=== PATIENT | male | born 1945 | race Caucasian/White ===

== ENCOUNTER 2018-09-07 11:51 | Emergency (ER) | payer MEDICARE ==
--- OUTSIDE RECORDS SUMMARY | 2018-09-07 12:00 | XMS REPORT | Continuity of Care Document ---
:1945 External Reference #:[id number] Author Name EmmaKaren so Care Team Providers Name Role Phone Irma Barnes MD Primary Care Physician Unavailable Payers Date Identification Numbers Payment Provider Subscriber Effective: Policy Number: [id number] Medicare Blue Ppo Keren Thomas 2014 Group Number: [id number] [address] [address] PayID: [id number] RENAY Haile [address] Effective: 2004 Policy Number: [id number] [facility] T[facility] Thomas Expires: 2018 PayID: [id number] [address] [address] RENAY Zarate [id number] Advance Directives Type Date Description Status Comment Other Directive 10/18/2014 Health Care Proxy Current and Verified Other Directive 10/18/2014 Doc Directing Health Care Current and Verified Problems Active Problems Provider Date Pulmonary emphysema Alexus Kirkland MD Onset: 04/16/2014 Essential hypertension José Luis Schwartz M.D.,FACP Onset: 06/21/2015 Benign prostatic hyperplasia Lionel Thomas NP Onset: 11/19/2017 Family History Date Family Member(s) Observation Comments General non contibutory ; pt adopted Social History Type Date Description Comments Sex Unknown Marital Status Lives With Occupation Retired commercial portfolio manager Tobacco Use Start: Unknown February 22, 2014 ETOH Use Currently consumes alcohol ETOH Use Consumes 4 beers per day Recreational Drug Use Denies Drug Use Tobacco Use Start: Unknown End: Patient is a former Pt quit September 2015 Unknown smoker Smoking Status Reviewed: 08/12/18 Patient is a former Pt quit September 2015 smoker Exercise Type/Frequency Does not exercise Allergies, Adverse Reactions, Alerts Active Allergies Reaction Severity Comments Date Flagyl 03/26/2014 Antihistamines 03/26/2014 Anticholinergics 03/26/2014 Dicyclomine 01/06/2015 Cyclobenzaprine prostatitis Moderate 03/10/2015 Valsartan 10/18/2015 Amlodipine 10/18/2015 Chlorthalidone feels drugged 10/18/2015 Engerix-B 11/05/2015 Hydrochlorothiazide pain lower abdomen Mild 06/29/2016 Pravastatin leg pain and urinary 11/06/2016 problems Methocarbamol irregular 10/26/2017 heartbeat,palpitations, HTN Aspirin GI upset when takes 11/15/2017 everyday Medications Active Medications SIG Qnty Indications Ordering Date Provider Oxycodone-Acetaminophen 1 tabs by mouth 12tabs M54.5 Lionel Thomas, 5-325mg every 6 hours as [employer] 9 Tablets needed for pain Nystatin 1 teaspoon four t 240units Lionel Thomas, [id number] imes a day for 7 [employer] 7 Suspension days as needed for thrush Mometasone Furoate apply daily as 60ml Lionel Thomas, 0.1% needed [employer] 5 Solution Symbicort 2 puff inhaled 2units J44.9 Lionelbritton Thomas, 160-4.5mcg/Act twice a day [employer] 5 Aerosol Omeprazole 1 by mouth twice 180caps Lionelbritton Thomas, 20mg Capsules DR a day [employer] 5 Nasacort Aq 2 sprays in each Unknown 55mcg/Act Aerosol nostril every day 5 Acidophilus Lactobacillus Plantarum 299v 1 Unknown by mouth every 0 Capsules day Hydrochlorothiazide 1 by mouth as 90tabs Brenton S. 25mg needed for Lopez, DO 0 Tablets bloating FACC Lisinopril take 1 to 2 120tabs Brenton S. 5mg Tablets tablets by mouth Lopez, DO 0 every day pending FAC bp measurements Hydrocortisone as needed Unknown 1% Lotion 0 Acetaminophen 2 tablets every 6 Unknown 500mg Tablets hours as needed 0 for pain Milk Of Magnesia 30 milliliters Unknown Suspension oral every day as 0 needed for constipation. History Medications Amoxicillin/Clavulanate take one tablet 28tabs J01.90 Lionel Thomas, 2018 - Potassium q12 hours for [employer] Unknown 875-125mg Tablets 14 days Augmentin one twice a day 20tabs Ayden Douglass 03/27/2018 - 875-125mg Tablets with food Humaira, 05/26/2018 Oxycodone-Acetaminophen 1 tabs by mouth 12tabs M54.5 Lionel Thomas, 2018 - 5-325mg every 6 hours [employer] Unknown Tablets as needed for pain Levofloxacin one by mouth 10tabs Lionel Thomas, 03/13/2018 - 500mg Tablets daily for 10 [employer] 03/23/2018 days Clopidogrel Bisulfate 1 by mouth 30tabs I65.23 Brenton Douglass 11/15/2017 - 75mg Tablets Sunday, Lopez, Unknown Sunday and FACC Sunday. Methocarbamol take 1 tablet 30tabs R10.9 Anastasia 09/17/2017 - 750mg Tablets every six hours Tracey, N.PEfraín 10/25/2017 as needed for pain. Levofloxacin 1 po qd 10tabs K57.30 Lilibeth Hector 02/16/2017 - 500mg Tablets Won Coker 03/29/2017 Delzicol Take 4 6 180caps Lionel Thomas, 11/23/2016 - 400mg Capsules DR Capsules By [employer] 10/25/2017 Mouth Per Day prn Oralone thin layer of 5gm Lionel Thomas, 11/23/2016 - 0.1% Paste paste to [employer] 02/05/2017 affected areas 2-4 times daily Pravastatin Sodium 1 tablet daily 90tabs E78.5 Lionel Thomas, 11/24/2015 - 40mg Tablets at bedtime [employer] 06/20/2016 Clonidine HCL Take one tablet 30tabs I10 Brenton Douglass 10/18/2015 - 0.1mg Tablets daily-patient Lopez, DO 10/13/2015 never started FACC medication Chlorthalidone 1/2 by mouth 30tabs Brenton Douglass 10/06/2015 - 25mg Tablets every day(pt DO John 10/18/2015 not taking) FACC Amlodipine Besylate 1 1/2 by mouth 30tabs I10 Lionel Thomas, 08/30/2015 - 5mg Tablets every day [employer] 09/07/2015 Valsartan 1 by mouth 90tabs I10 Melecio Ramon 08/23/2015 - 80mg Tablets every day Won Pierce 08/30/2015 Symbicort 2 puff twice a 1units J44.9 Melecio Ramon 04/16/2014 - 80-4.5mcg/Act Aerosol day Won Pierce 01/06/2015 Foradil Aerolizer 1 cap 1caps 496 Alexus 04/16/2014 - 12mcg Capsules inhalation MD Isael 04/16/2014 every day Foradil Aerolizer 1 cap 1caps 496 Alexus 04/16/2014 - 12mcg Capsules inhalation MD Isael 01/06/2015 twice a day Foradil Aerolizer 1 cap 1caps 496 Alexus 03/26/2014 - 12mcg Capsules inhalation MD Isael 04/16/2014 every day Advair HFA twice a day 30units 496 Alexus 03/26/2014 - 230-21mcg/Act Aerosol MD Isael 04/15/2014 Ibuprofen not taking Unknown 03/25/2014 - 200mg Capsules 09/08/2015 Hydrocortisone apply as Unknown 03/25/2014 - Cream directed 01/06/2015 Lactaid as needed Alexus 03/25/2014 - MD Isael 11/05/2016 Culturelle not taking Unknown 03/25/2014 - Capsules 09/08/2015 Symbicort by mouth twice Unknown 03/25/2014 - 160-4.5mcg/Act Aerosol a day 04/16/2014 Lisinopril 1 by mouth 180tabs Melecio Ramon 03/25/2014 - 20mg Tablets twice day Won Pierce 08/30/2015 Delzicol 2 by mouth Unknown - 400mg Capsules DR three times a 06/01/2015 day Nystatin 1 teaspoon four 240units Melecio Ramon - [id number] Suspension t imes a day Won Pierce 06/01/2015 for 7 days as needed fro thrush Triamcinolone Acetonide not taking 454units Unknown - 0.1% Cream Unknown Bactrim daily Unknown - 09/29/2015 Amlodipine Besylate 1 tab po qd Unknown - 5mg Tablets 09/08/2015 Lisinopril 1 by mouth 60tabs Brenton Douglass - 5mg Tablets twice daily as John, Unknown needed(pt not FACC taking) Culturelle Digestive Health 1 by mouth Unknown - Capsules every day 09/27/2017 Melatonin ER 03/13/18 reports Unknown - 5mg Tablets ER not taking. 1 @ Unknown hs as needed KP Aspirin 1 by mouth Unknown - 81mg Tablets DR every day 11/05/2016 Delzicol by mouth twice Unknown - 400mg Capsules DR a day 08/04/2018 Medications Administered in Office Medication SIG Qnty Indications Ordering Provider Date Technetium TC 99M Brenton Lopez, FACC 05/17/2016 Tetrofosmin, Per Unit Dose Up To 40 Millicuries Injection Immunizations CPT Code Status Date Vaccine Reaction Lot # [id number] Given 11/19/2017 Fluzone High Dose [id number] 98306 Given 09/04/2017 Zoster (Shingles) Vaccine (HZV), Recombinant, Subunit, Adjuvanted 88673 Given 03/19/2017 Zoster (Shingles) Vaccine (HZV), Recombinant, Subunit, Adjuvanted 21535 Given 11/23/2016 Pneumonia Vaccine No immediate [id number] reaction...jh 86358 Given 11/23/2016 Influenza Virus Vaccine, No immediate [id number] Quadrivalent, Split, reaction.... Preservative Free 46493 Given 11/24/2015 Influ Virus Vaccine, no reaction noted ... [id number] Quadrivalent, Split Virus, [place] [address] Given 09/29/2015 Pneumococcal Conjugate [id number] Vaccine 13 Valent For Intramuscular Use 79162 Given 12/04/2005 Influenza Virus 3Yrs & Over Vital Signs Date Vital Result Comment 08/12/2018 11:42am Heart Rate 60 /min BP Systolic Sitting 138 mmHg BP Diastolic Sitting 88 mmHg Respiratory Rate 16 /min Body Temperature 97.4 F 08/05/2018 2:23pm Height 69 inches 5'9" Weight 175.00 lb Heart Rate 67 /min BP Systolic 146 mmHg BP Diastolic 84 mmHg Body Temperature 97.8 F O2 % BldC Oximetry 96 % BMI (Body Mass Index) 25.8 kg/m2 07/30/2018 3:05pm Weight 175.00 lb Heart Rate 72 /min BP Systolic 146 mmHg BP Diastolic 84 mmHg Respiratory Rate 18 /min Body Temperature 97.5 F 05/27/2018 1:46pm Height 69 inches 5'9" Weight 177.00 lb Heart Rate 70 /min BP Systolic 143 mmHg BP Diastolic 81 mmHg BP Systolic Recheck 134 mmHg BP Diastolic Recheck 72 mmHg Body Temperature 97.9 F O2 % BldC Oximetry 98 % BMI (Body Mass Index) 26.1 kg/m2 04/01/2018 10:41am Height 69 inches 5'9" Weight 172.00 lb BP Systolic Sitting 126 mmHg BP Diastolic Sitting 74 mmHg Respiratory Rate 16 /min Pain Level 5 BMI (Body Mass Index) 25.4 kg/m2 03/22/2018 11:50am Heart Rate 60 /min Respiratory Rate 20 /min Body Temperature 97.8 F 03/13/2018 11:45am Height 69 inches 5'9" Weight 172.00 lb Heart Rate 102 /min BP Systolic 139 mmHg BP Diastolic 87 mmHg Body Temperature 99.3 F O2 % BldC Oximetry 96 % BMI (Body Mass Index) 25.4 kg/m2 11/19/2017 1:07pm Height 69 inches 5'9" Weight 172.00 lb Heart Rate 56 /min BP Systolic Sitting 132 mmHg BP Diastolic Sitting 74 mmHg Body Temperature 96.6 F O2 % BldC Oximetry 99 % BMI (Body Mass Index) 25.4 kg/m2 11/15/2017 1:42pm Height 69 inches 5'9" Weight 173.00 lb Heart Rate 66 /min BP Systolic Sitting 138 mmHg lue reg cuff BP Diastolic Sitting 72 mmHg lue reg cuff BP Systolic Standing 110 mmHg BP Diastolic Standing 70 mmHg Respiratory Rate 16 /min BMI (Body Mass Index) 25.5 kg/m2 10/26/2017 11:08am Height 69 inches 5'9" Weight 173.00 lb Heart Rate 72 /min BP Systolic Sitting 164 mmHg LA Large Cuff BP Diastolic Sitting 88 mmHg LA Large Cuff BP Systolic Standing 156 mmHg LA Large Cuff BP Diastolic Standing 82 mmHg LA Large Cuff Respiratory Rate 20 /min Pain Level 0 O2 % BldC Oximetry 98 % BMI (Body Mass Index) 25.5 kg/m2 09/28/2017 2:41pm Height 69 inches 5'9" Heart Rate 60 /min BP Systolic Sitting 154 mmHg left arm , reg cuff BP Diastolic Sitting 90 mmHg left arm , reg cuff BP Systolic Standing 152 mmHg BP Diastolic Standing 88 mmHg Respiratory Rate 18 /min 09/17/2017 1:58pm Height 69 inches 5'9" Weight 176.00 lb Heart Rate 58 /min BP Systolic Sitting 155 mmHg BP Diastolic Sitting 81 mmHg Body Temperature 98.7 F O2 % BldC Oximetry 99 % BMI (Body Mass Index) 26.0 kg/m2 05/24/2017 1:32pm Weight 174.50 lb Heart Rate 59 /min BP Systolic 120 mmHg BP Diastolic 72 mmHg Body Temperature 96.8 F O2 % BldC Oximetry 99 % 04/26/2017 11:37am Weight 180.50 lb Heart Rate 62 /min BP Systolic 132 mmHg BP Diastolic 66 mmHg Body Temperature 97.1 F O2 % BldC Oximetry 98 % 03/30/2017 9:02am Heart Rate 58 /min BP Systolic 150 mmHg BP Diastolic 88 mmHg Respiratory Rate 16 /min Pain Level 0 O2 % BldC Oximetry 98 % 02/16/2017 1:27pm Weight 176.50 lb Heart Rate 63 /min BP Systolic 124 mmHg BP Diastolic 72 mmHg Body Temperature 97.7 F O2 % BldC Oximetry 96 % 02/16/2017 10:28am Height 69 inches 5'9" Weight 175.50 lb Heart Rate 72 /min BP Systolic Sitting 142 mmHg BP Diastolic Sitting 86 mmHg Respiratory Rate 16 /min Pain Level 2 BMI (Body Mass Index) 25.9 kg/m2 11/23/2016 1:17pm Weight 175.75 lb Heart Rate 56 /min BP Systolic 124 mmHg BP Diastolic 72 mmHg Body Temperature 97.2 F O2 % BldC Oximetry 97 % 11/06/2016 2:00pm Height 69 inches 5'9" Weight 175.00 lb with shoes Heart Rate 72 /min BP Systolic Sitting 110 mmHg Lue reg cuff BP Diastolic Sitting 80 mmHg Lue reg cuff BP Systolic Standing 120 mmHg Lue reg cuff BP Diastolic Standing 82 mmHg Lue reg cuff Respiratory Rate 17 /min BMI (Body Mass Index) 25.8 kg/m2 Ejection Fraction 55-60% date 09/27/15 ECHO 05/31/2016 1:12pm Height 69 inches 5'9" Weight 180.00 lb Heart Rate 58 /min BP Systolic Sitting 122 mmHg left arm, reg cuff BP Diastolic Sitting 84 mmHg left arm, reg cuff BP Systolic Standing 120 mmHg left arm, reg cuff BP Diastolic Standing 80 mmHg left arm, reg cuff BMI (Body Mass Index) 26.6 kg/m2 Ejection Fraction 55-60% 09/27/15 05/24/2016 2:21pm Weight 172.50 lb Heart Rate 87 /min BP Systolic 154 mmHg BP Diastolic 82 mmHg Body Temperature 98.2 F O2 % BldC Oximetry 97 % 05/04/2016 10:30am Height 69 inches 5'9" Weight 176.00 lb no shoes Heart Rate 56 /min BP Systolic Sitting 146 mmHg Lue reg cuff BP Diastolic Sitting 72 mmHg Lue reg cuff BP Systolic Standing 138 mmHg Lue reg cuff BP Diastolic Standing 70 mmHg Lue reg cuff Respiratory Rate 17 /min BMI (Body Mass Index) 26.0 kg/m2 Ejection Fraction 55-60% 09/27/2015-echo 04/11/2016 11:13am BP Systolic 118 mmHg BP Diastolic 70 mmHg 03/07/2016 12:59pm Heart Rate 66 /min BP Systolic 138 mmHg BP Diastolic 76 mmHg Respiratory Rate 18 /min Body Temperature 97.5 F 02/29/2016 1:00pm Heart Rate 60 /min Respiratory Rate 16 /min Body Temperature 96.9 F 01/18/2016 1:55pm Height 69 inches 5'9" Weight 175.00 lb Heart Rate 72 /min BP Systolic 142 mmHg BP Diastolic 84 mmHg Respiratory Rate 18 /min Body Temperature 98.7 F 97.5 BMI (Body Mass Index) 25.8 kg/m2 11/24/2015 2:54pm Height 69 inches 5'9" Weight 175.00 lb Heart Rate 62 /min BP Systolic Sitting 148 mmHg BP Diastolic Sitting 88 mmHg Respiratory Rate 15 /min Body Temperature 98.0 F O2 % BldC Oximetry 98 % BMI (Body Mass Index) 25.8 kg/m2 11/05/2015 10:50am Weight 174.00 lb Heart Rate 52 /min BP Systolic Sitting 154 mmHg LA Regular Cuff BP Diastolic Sitting 80 mmHg LA Regular Cuff BP Systolic Standing 144 mmHg LA Regular Cuff BP Diastolic Standing 84 mmHg LA Regular Cuff Ejection Fraction 55-60% 09/27/15 10/18/2015 3:35pm Weight 176.00 lb with shoes Heart Rate 60 /min BP Systolic Sitting 150 mmHg LA reg cuff BP Diastolic Sitting 90 mmHg LA reg cuff BP Systolic Standing 158 mmHg LA reg cuff BP Diastolic Standing 86 mmHg LA reg cuff Respiratory Rate 16 /min Ejection Fraction 55-60% 09/27/2015 09/29/2015 2:57pm Weight 174.00 lb Heart Rate 58 /min BP Systolic Sitting 128 mmHg BP Diastolic Sitting 64 mmHg Respiratory Rate 15 /min Body Temperature 98.5 F O2 % BldC Oximetry 98 % 09/17/2015 1:33pm Height 70.25 inches 5'10.25" Weight 170.25 lb Heart Rate 64 /min BP Systolic 126 mmHg Ra reg cuff BP Diastolic 74 mmHg Ra reg cuff BP Systolic Sitting 134 mmHg LA reg cuff BP Diastolic Sitting 84 mmHg LA reg cuff BP Systolic Standing 134 mmHg LA BP Diastolic Standing 82 mmHg LA Respiratory Rate 16 /min BMI (Body Mass Index) 24.3 kg/m2 09/07/2015 10:12am Weight 171.00 lb with shoes Heart Rate 63 /min BP Systolic Sitting 146 mmHg BP Diastolic Sitting 84 mmHg Body Temperature 96.6 F O2 % BldC Oximetry 97 % 09/01/2015 10:56am Weight 170.00 lb Heart Rate 87 /min BP Systolic Sitting 145 mmHg right BP Diastolic Sitting 89 mmHg right BP Systolic Standing 144 mmHg left BP Diastolic Standing 93 mmHg left Body Temperature 98.0 F O2 % BldC Oximetry 97 % 08/30/2015 4:23pm Weight 173.00 lb Heart Rate 66 /min BP Systolic Sitting 142 mmHg BP Diastolic Sitting 80 mmHg Respiratory Rate 15 /min Body Temperature 98.0 F O2 % BldC Oximetry 98 % 08/23/2015 4:35pm Weight 172.25 lb Heart Rate 74 /min BP Systolic 166 mmHg BP Diastolic 89 mmHg Body Temperature 97.3 F O2 % BldC Oximetry 97 % 06/01/2015 1:32pm Weight 166.00 lb Heart Rate 85 /min BP Systolic Sitting 140 mmHg BP Diastolic Sitting 88 mmHg Respiratory Rate 16 /min Body Temperature 97.6 F O2 % BldC Oximetry 98 % 03/10/2015 4:29pm Height 70 inches 5'10" Weight 173.00 lb Heart Rate 69 /min BP Systolic 116 mmHg BP Diastolic 69 mmHg Body Temperature 98.4 F O2 % BldC Oximetry 96 % BMI (Body Mass Index) 24.8 kg/m2 01/06/2015 2:52pm Weight 171.00 lb Heart Rate 83 /min BP Systolic Sitting 144 mmHg BP Diastolic Sitting 84 mmHg Body Temperature 96.9 F 04/16/2014 10:34am Heart Rate 93 /min BP Systolic Sitting 132 mmHg BP Diastolic Sitting 60 mmHg Respiratory Rate 22 /min O2 % BldC Oximetry 93 % 03/26/2014 2:46pm Height 70 inches 5'10" Weight 183.12 lb Heart Rate 83 /min BP Systolic Sitting 128 mmHg BP Diastolic Sitting 62 mmHg Respiratory Rate 20 /min Body Temperature 97.8 F O2 % BldC Oximetry 96 % BMI (Body Mass Index) 26.3 kg/m2 Neck Circumference in inches 15.5 Results Test Date Facility Test Result H/L Range Note Laboratory test 05/14/2018 [facility] Rheumatoid Factor 13 IU/ mL N <15 [address] [place] [address] [phone] PSA Screening 4.726 ng/mL High 0-4.000 2 Connective Tissue 05/14/2018 [facility] Anti-Nuclear Antibody 0.3 U [address] [place] [address] [phone] Cyclic Citrullinated Peptide <15.6 U 4 Interpretation See Comment 5 Laboratory test 05/14/2018 [facility] Erythrocyte Sed 36 mm/Hr High 0-19 [address] [place] [address] [phone] C Reactive Protein 5.08 mg/L N <8.01 7 Laboratory test 03/13/2018 [facility] C Difficile PCR SEE RESULT [address] [place] [address] [phone] CBC Auto Diff 03/13/2018 [facility] White Blood 7.8 10^3/uL N 3.5-[address] Count .8 [place] [address] [phone] Red Blood Count 4.31 10^6/uL N 4.00-5.40 Hemoglobin 14.0 g/dL N 14.0-18.0 Hematocrit 41 % Low 42-52 Mean Corpuscular Volume 95 fL High 80-94 Mean Corpuscular Hemoglobin 32 pg High 27-31 Mean Corpuscular HGB Conc 34 g/dL N 31-36 Red Cell Distribution Width 13 % N 10.5-15 Abs Neutrophils 5.5 10^3/uL N 1.5-7.7 Abs Lymphocytes 1.2 10^3/uL N 1.0-4.8 Abs Monocytes 0.9 10^3/uL High 0-0.8 Abs Eosinophils 0.1 10^3/uL N 0-0.6 Abs Basophils 0 10^3/uL N 0-0.2 Abs Nucleated RBC 0 10^3/uL Granulocyte % 70.3 % Lymphocyte % 15.6 % Monocyte % 12.2 % Eosinophil % 1.3 % Basophil % 0.6 % Nucleated Red Blood Cells % 0 Platelet Count (SEE NOTE) 10^3/uL 150-450 9 Comp Metabolic Panel 03/13/2018 [facility] Sodium 138 mmol/L N 135-[address] [place] [address] [phone] Potassium 4.5 mmol/L N 3.5-5.0 Chloride 104 mmol/L N 101-111 Co2 Carbon Dioxide 29 mmol/L N 22-32 Anion Gap 5 mmol/L N 2-11 Glucose 86 mg/dL N 70-100 Blood Urea Nitrogen 14 mg/dL N 6-24 Creatinine 0.72 mg/dL N 0.67-1.17 BUN/Creatinine Ratio 19.4 N 8-20 Calcium 9.0 mg/dL N 8.6-10.3 Total Protein 6.4 g/dL N 6.4-8.9 Albumin 3.9 g/dL N 3.2-5.2 Globulin 2.5 g/dL N 2-4 Albumin/Globulin Ratio 1.6 N 1-3 Total Bilirubin 1.00 mg/dL N 0.2-1.0 Alkaline Phosphatase 44 U/L N 34-104 Alt 16 U/L N 7-52 Ast 19 U/L N 13-39 Egfr Non- 107.6 >60 Egfr 130.2 >60 10 Laboratory test 03/13/2018 [facility] Lipase 10 U/L Low 11.0- 82.[address] [place] [address] [phone] Erythrocyte Sed Rate 67 mm/Hr High 0-40 C Reactive Protein 73.10 mg/L High <8.01 Urine Culture And 03/13/2018 [facility] Urine Culture SEE RESULT [address] [place] [address] [phone] Lipid Profile 11/08/2017 [facility] Triglycerides 59 mg/dL 12 (Trig/Chol/HDL) [address] [place] [address] [phone] Cholesterol 173 mg/dL 13 HDL Cholesterol 66.3 mg/dL 14 LDL Cholesterol 95 mg/dL 15 Comp Metabolic Panel 11/08/2017 [facility] Sodium 141 mmol/L N 135-[address] [place] [address] [phone] Potassium 4.4 mmol/L N 3.5-5.0 Chloride 105 mmol/L N 101-111 Co2 Carbon Dioxide 29 mmol/L N 22-32 Anion Gap 7 mmol/L N 2-11 Glucose 95 mg/dL N 70-100 Blood Urea Nitrogen 16 mg/dL N 6-24 Creatinine 0.63 mg/dL Low 0.67-1.17 BUN/Creatinine Ratio 25.4 High 8-20 Calcium 9.1 mg/dL N 8.6-10.3 Total Protein 6.3 g/dL Low 6.4-8.9 Albumin 4.1 g/dL N 3.2-5.2 Globulin 2.2 g/dL N 2-4 Albumin/Globulin Ratio 1.9 N 1-3 Total Bilirubin 1.00 mg/dL N 0.2-1.0 Alkaline Phosphatase 48 U/L N 34-104 Alt 22 U/L N 7-52 Ast 20 U/L N 13-39 Egfr Non- 125.9 >60 Egfr 152.3 >60 16 Laboratory test 05/07/2017 [facility] Clotest SEE RESULT [address] [place] [address] [phone] Laboratory test 05/07/2017 [facility] Surgical SEE RESULT [address] [place] [address] [phone] Comp Metabolic 04/27/2017 [facility] Sodium 140 mmol/L N 133- [address] [place] [address] [phone] Potassium 4.0 mmol/L N 3.5-5.0 Chloride 103 mmol/L N 101-111 Co2 Carbon Dioxide 32 mmol/L N 22-32 Anion Gap 5 mmol/L N 2-11 Glucose 89 mg/dL N 70-100 Blood Urea Nitrogen 15 mg/dL N 6-24 Creatinine 0.69 mg/dL N 0.67-1.17 BUN/Creatinine Ratio 21.7 High 8-20 Calcium 9.2 mg/dL N 8.6-10.3 Total Protein 6.3 g/dL Low 6.4-8.9 Albumin 3.8 g/dL N 3.2-5.2 Globulin 2.5 g/dL N 2-4 Albumin/Globulin Ratio 1.5 N 1-3 Total Bilirubin 1.20 mg/dL High 0.2-1.0 Alkaline Phosphatase 40 U/L N 34-104 Alt 20 U/L N 7-52 Ast 14 U/L N 13-39 Egfr Non- 113.4 >60 Egfr 145.8 >60 19 Lipid Profile 04/27/2017 [facility] Triglycerides 78 mg/dL 20 (Trig/Chol/HDL) [address] [place] [address] [phone] Cholesterol 206 mg/dL 21 HDL Cholesterol 75.4 mg/dL 22 LDL Cholesterol 115 mg/dL 23 Laboratory test 04/27/2017 [facility] PSA Screening 4.259 High 0-4.000 [address] ng/[place] [address] [phone] CBC Auto Diff 04/27/2017 [facility] White Blood 7.4 N 3.5- 10.[address] Count 10^3/[place] [address] [phone] Red Blood Count 4.43 10^6/uL N 4.0-5.4 Hemoglobin 14.3 g/dL N 14.0-18.0 Hematocrit 42 % N 42-52 Mean Corpuscular Volume 96 fL High 80-94 Mean Corpuscular Hemoglobin 32 pg High 27-31 Mean Corpuscular HGB Conc 34 g/dL N 31-36 Red Cell Distribution Width 13 % N 10.5-15 Platelet Count 174 10^3/uL N 150-450 Mean Platelet Volume 9.0 um3 N 7.4-10.4 Abs Neutrophils 4.2 10^3/uL N 1.5-7.7 Abs Lymphocytes 2.3 10^3/uL N 1.0-4.8 Abs Monocytes 0.7 10^3/uL N 0-0.8 Abs Eosinophils 0.2 10^3/uL N 0-0.6 Abs Basophils 0 10^3/uL N 0-0.2 Abs Nucleated RBC 0 10^3/uL Granulocyte % 57.0 % N 38-83 Lymphocyte % 30.6 % N 25-47 Monocyte % 10.0 % High 0-7 Eosinophil % 2.1 % N 0-6 Basophil % 0.3 % N 0-2 Nucleated Red Blood Cells % 0 Laboratory 04/27/2017 [facility] Lipase 12 U/L N 11.0-82.[address] [place] [address] [phone] Laboratory 03/30/2017 [facility] Surgical SEE RESULT 25 test [place] [address] [phone] Lipid Profile 10/18/2016 [facility] Triglycerides 68 mg/dL N 26 (Trig/Chol/HDL ) [place] [address] [phone] Cholesterol 194 mg/dL N 27 HDL Cholesterol 58.8 mg/dL N 28 LDL Cholesterol 122 mg/dL N 29 Comp Metabolic Panel 10/18/2016 [facility] Sodium 139 mmol/L N 133-[address] [place] [address] [phone] Potassium 4.0 mmol/L N 3.5-5.0 Chloride 101 mmol/L N 101-111 Co2 Carbon Dioxide 32 mmol/L N 22-32 Anion Gap 6 mmol/L N 2-11 Glucose 103 mg/dL High 70-100 Blood Urea Nitrogen 16 mg/dL N 6-24 Creatinine 0.78 mg/dL N 0.67-1.17 BUN/Creatinine Ratio 20.5 High 8-20 Calcium 9.7 mg/dL N 8.6-10.3 Total Protein 7.0 g/dL N 6.4-8.9 Albumin 4.2 g/dL N 3.2-5.2 Globulin 2.8 g/dL N 2-4 Albumin/Globulin Ratio 1.5 N 1-3 Total Bilirubin 1.60 mg/dL High 0.2-1.0 Alkaline Phosphatase 37 U/L N 34-104 Alt 16 U/L N 7-52 Ast 19 U/L N 13-39 Egfr Non- 98.7 N >60 Egfr 126.9 N >60 30 Laboratory test 05/04/2016 [facility] Troponin-I (TnI) 0.01 N <0.04 31, [address] ng/[place] [address] [phone] Lipid Profile 05/03/2016 [facility] Triglycerides 61 mg/dL N 33 (Trig/Chol/HDL) [address] [place] [address] [phone] Cholesterol 181 mg/dL N 34 HDL Cholesterol 60.7 mg/dL N 35 LDL Cholesterol 108 mg/dL N 36 Comp Metabolic Panel 05/03/2016 [facility] Sodium 135 mmol/L N 133-[address] [place] [address] [phone] Potassium 4.1 mmol/L N 3.5-5.0 Chloride 103 mmol/L N 101-111 Co2 Carbon Dioxide 29 mmol/L N 22-32 Anion Gap 3 mmol/L N 2-11 Glucose 107 mg/dL High 70-100 Blood Urea Nitrogen 16 mg/dL N 6-24 Creatinine 0.73 mg/dL N 0.67-1.17 BUN/Creatinine Ratio 21.9 High 8-20 Calcium 9.4 mg/dL N 8.6-10.3 Total Protein 6.9 g/dL N 6.4-8.9 Albumin 4.1 g/dL N 3.2-5.2 Globulin 2.8 g/dL N 2-4 Albumin/Globulin Ratio 1.5 N 1-3 Total Bilirubin 1.30 mg/dL High 0.2-1.0 Alkaline Phosphatase 35 U/L N 34-104 Alt 16 U/L N 7-52 Ast 16 U/L N 13-39 Egfr Non- 106.5 N >60 Egfr 137.0 N >60 37 Laboratory test 05/03/2016 [facility] PSA Screening 3.559 N 0- 4.000 [address] ng/[place] [address] [phone] Laboratory test 05/03/2016 [facility] PSA Screening 3.559 N 0- 4.000 [address] ng/[place] [address] [phone] Creatinine 03/01/2016 [facility] Creatinine 0.80 mg/dL N 0.67- 1.[address] [place] [address] [phone] Egfr Non- 96.1 N >60 Egfr 123.6 N >60 40 Laboratory test 03/01/2016 [facility] Blood Urea Nitrogen 13 mg/ dL N 6-24 finding [address] [facility] [place] [address] [phone] Lipid Profile 10/29/2015 [facility] Triglycerides 67 mg/dL N 41 (Trig/Chol/HDL) [address] [place] [address] [phone] Cholesterol 199 mg/dL N 42 HDL Cholesterol 59.7 mg/dL N 43 LDL Cholesterol 126 mg/dL N 44 Laboratory test finding 10/29/2015 [facility] Glucose 95 mg/dL N 70-100 [address] [place] [address] [phone] Hepatitis C Antibody Nonreactive N Nonreactive Basic Metabolic Panel 09/23/2015 [facility] Sodium 136 mmol/L N 133-145 [address] [place] [address] [phone] Potassium 4.5 mmol/L N 3.5-5.0 Chloride 103 mmol/L N 101-111 Co2 Carbon Dioxide 29 mmol/L N 22-32 Anion Gap 4 mmol/L N 2-11 Glucose 99 mg/dL N 70-100 Blood Urea Nitrogen 16 mg/dL N 6-24 Creatinine 0.72 mg/dL N 0.67-1.17 BUN/Creatinine Ratio 22.2 High 8-20 Calcium 9.4 mg/dL N 8.6-10.3 Egfr Non- 108.6 N >60 Egfr 139.6 N >60 45 Laboratory test 09/23/2015 [facility] Magnesium 2.2 mg/dL N 1.9-2.7 finding [address] [place] [address] [phone] Laboratory test 01/07/2015 [facility] TSH (Thyroid 1.68 N 0.34 -5.60 finding 101 [facility] Stim Horm) ?IU/[place] [address] [phone] Basic Metabolic 01/07/2015 [facility] Sodium 136 mmol/L N 133- 145 Panel [address] [place] [address] [phone] Potassium 4.2 mmol/L N 3.5-5.0 Chloride 100 mmol/L Low 101-111 Co2 Carbon Dioxide 30 mmol/L N 22-32 Anion Gap 6 mmol/L N 2-11 Glucose 96 mg/dL N 70-100 Blood Urea Nitrogen 10 mg/dL N 6-24 Creatinine 0.79 mg/dL N 0.67-1.17 BUN/Creatinine Ratio 12.7 N 8-20 Calcium 9.7 mg/dL N 8.6-10.3 Egfr Non- 97.8 N >60 Egfr 125.8 N >60 46 CBC Auto Diff 01/07/2015 [facility] White Blood 6.1 10^3/uL N 4.8-10.[address] [place] [address] [phone] Red Blood Count 4.37 10^6/uL N 4.0-5.4 Hemoglobin 14.4 g/dL N 14.0-18.0 Hematocrit 43 % N 42-52 Mean Corpuscular Volume 98 fL High 80-94 Mean Corpuscular Hemoglobin 33 pg High 27-31 Mean Corpuscular HGB Conc 34 g/dL N 31-36 Red Cell Distribution Width 12 % N 10.5-15 Platelet Count 224 10^3/uL N 150-450 Mean Platelet Volume 9 um3 N 7.4-10.4 Abs Neutrophils 4.1 10^3/uL N 1.5-7.7 Abs Lymphocytes 1.4 10^3/uL N 1.0-4.8 Abs Monocytes 0.6 10^3/uL N 0-0.8 Abs Eosinophils 0.1 10^3/uL N 0-0.6 Abs Basophils 0 10^3/uL N 0-0.2 Abs Nucleated RBC 0.01 10^3/uL N Granulocyte % 66.3 % N 38-83 Lymphocyte % 22.2 % Low 25-47 Monocyte % 9.1 % High 1-9 Eosinophil % 1.9 % N 0-6 Basophil % 0.5 % N 0-2 Nucleated Red Blood Cells % 0.2 N Laboratory test 01/07/2015 [facility] Magnesium 2.1 mg/dL N 1.9-2.[address] [place] [address] [phone] Anti Dnase B 04/07/2014 [facility] Anti Streptolysin 200 IU/mL N 0 - 530 Strep Antibodies [address] [place] [address] [phone] Anti-DNase B 90 U/mL N 0 - 300 47 Laboratory test 04/07/2014 [facility] Vicki (Anti-Nuclear Negative N Negative finding [address] AB) [place] [address] [phone] Rheumatoid Factor <15 IU/mL N <15 48 1 Copy Result to: LILIBETH TREVIZO ([id number]) 2 Serum levels of PSA measured using the [employer] DXI Hybritech immunoassay should not be interpreted as absolute evidence of the presence or absence of disease. The PSA value should be used in conjunction with other pertinent clinical diagnostic procedures. The values obtained with different assay methods or kits cannot be used interchangeably. 3 REFERENCE VALUE <=1.0 (Negative) 4 REFERENCE VALUE <20.0 (Negative) 5 Tests for antibodies to dsDNA and PEDRO antigens are not performed automatically unless the VICKI result is > or= 3.0 U. Studies performed at [facility] indicate that positive VICKI results <3.0 U are rarely accompanied by positive second order tests. Test Performed by: [facility] [id number] [place] [address] 6 Copy Result to: LILIBETH TREVIZO ([id number]) Verbal to [id number]. [id number] TO CALL PATIENT FOR REDRAW. by [id number] at 1412 on 05/14/18. 7 Copy Result to: LILIBETH TREVIZO ([id number]) 8 SEE RESULT BELOW Name: KEREN THOMAS : [address]: Lionel Thomas NP Acct: [id number] Unit: [id number] AGE: 73 Location: [facility] Re03/13/18 SEX: M Status: REG REF SPEC: [id number] VIJAY: 03/13/[address]: Lionel Thomas NP REQ: [id number] RECD: 03/13/18 STATUS: COMP _ SOURCE: STOOL SPDESC: ORDERED: Ismael bryson PCR, Stool Culture, O P: Elena/Crypt Procedure Result Reported Site Stool Culture Final 03/15/18- 847 ML Result No enteric pathogens isolated Testing for Salmonella, Shigella, Aeromonas, Plesiomonas, Yersinia and Campylobacter are included in a Stool Culture. Vibrio spp not routinely tested for in a stool culture. If testing is desired, please request specifically when placing test order. Sensitivities not routinely performed on stool isolates, as antibiotics may prolong the carriage rate of bacteria. Please contact the microbiology lab if sensitivities are required. Stool Specimen Description Final 03/13/18- 1824 ML Stool Color Brown Stool Form Nonformed Stool Consistency Liquid Shiga Toxin 1 2 Final 03/14/18- 1331 ML Organism 1 Negative Shiga Toxin 1 2 Immunochromatographic Assay C. difficile PCR Final 03/13/18- 1902 ML Organism 1 027 Presumptive NEGATIVE Organism 2 Toxigenic C.diff NEGATIVE O P: Giardia/Cryptospor Screen Final 03/14/18- 1324 ML CONTINUED ON NEXT PAGE DEPARTMENT OF PATHOLOGY, [address] [place] [address] Simon Garcia M.D. Director [facility] # [id number] Patient: KEREN THOMAS [id number] (Continued) Specimen: [id number] Collected: 03/13/18 Received: 03/13/18 (Continued) Procedure Result Reported Site O P: Giardia/Cryptospor Screen Final (continued) 03/14/18- 1324 Organism 1 Neg Cryptosporidium/Giardia Giardia and cryptosporidium antigen testing performed by enzyme immunoassay. If patient is immunocompromised or has traveled to or is from a developing country, a full ova and parasite exam with microscopic (OPMIC) is recommended. All samples will be held 21 days in case full ova and parasite testing is requested. Contact the Microbiology Department at [phone]. TEST LIMITATIONS: As with all diagnostic procedures, the results obtained should be used in conjunction with other clinical information available the physician, including confirmation by another method. Negative results can occur in samples containing antigen below lower limits of detection of the assay. One negative specimen does not rule out the possibility of a parasitic infection. To improve detection it is recommended that three specimens be collected on separate days over a period of not more than seven days. The use of colonic washes, aspirates or other diluted sample types has not been established and could affect the performance of the assay. Stool samples contaminated with an oily or particulate base (eg. Barium, mineral oil etc.) could interfere with the test and are not recommended. * ML - Main Lab . END OF REPORT DEPARTMENT OF PATHOLOGY, [address] [place] [address] Simon Garcia M.D. Director [facility] # [id number] 9 Platelets clumped. Unable to perform accurate count. 10 Because ethnic data is not always readily available, this report includes an eGFR for both -Americans and non- Americans. The National Kidney Disease Education Program (NKDEP) does not endorse the use of the MDRD equation for patients that are not between the ages of 18 and 70, are , have extremes of body size, muscle mass, or nutritional status, or are non- or non-. According to the National Kidney Foundation, irrespective of diagnosis, the stage of the disease is based on the level of kidney function: Stage Description GFR(mL/min/1.73 m(2)) 1 Kidney damage with normal or decreased GFR 90 2 Kidney damage with mild decrease in GFR 60-89 3 Moderate decrease in GFR 30-59 4 Severe decrease in GFR 15-29 5 Kidney failure <15 (or dialysis) 11 SEE RESULT BELOW Name: WILLIAMKEREN : [address]: Lionel Thomas NP Acct: [id number] Unit: [id number] AGE: 73 Location: [facility] Re03/13/18 SEX: M Status: REG REF SPEC: [id number] VIJAY: 03/13/18-[address]: Lionel Thomas [employer] REQ: [id number] RECD: 03/13/18 STATUS: COMP _ SOURCE: URINE SPDESC: ORDERED: Urine Culture QUERIES: Urine Source: Clean Catch Procedure Result Reported Site Urine Culture Final 03/14/18- 1610 ML No Growth (<1,000 CFU/mL) * ML - Main Lab . END OF REPORT DEPARTMENT OF PATHOLOGY, [address] [place] [address] Simon Garcia M.D. Director [facility] # [id number] 12 Desirable: <150 Borderline High: 150-199 High: 200-499 Very High: >500 13 Desirable: <200 Borderline High: 200-239 High: >239 14 Low: <40 Desirable: 40-60 High: >60 15 Desirable: <100 Near Optimal: 100-129 Borderline High: 130-159 High: 160-189 Very High: >189 16 Because ethnic data is not always readily available, this report includes an eGFR for both -Americans and non- Americans. The National Kidney Disease Education Program (NKDEP) does not endorse the use of the MDRD equation for patients that are not between the ages of 18 and 70, are , have extremes of body size, muscle mass, or nutritional status, or are non- or non-. According to the National Kidney Foundation, irrespective of diagnosis, the stage of the disease is based on the level of kidney function: Stage Description GFR(mL/min/1.73 m(2)) 1 Kidney damage with normal or decreased GFR 90 2 Kidney damage with mild decrease in GFR 60-89 3 Moderate decrease in GFR 30-59 4 Severe decrease in GFR 15-29 5 Kidney failure <15 (or dialysis) 17 SEE RESULT BELOW Name: KEREN THOMAS : [address]: Jimi Graham MD Acct: [id number] Unit: [id number] AGE: 72 Location: ENDO Re05/07/17 SEX: M Status: REG REF SPEC: [id number] VIJAY: 05/07/17-12[address] [facility] [address]: Jimi Graham MD REQ: [id number] RECD: 05/07/175080 STATUS: AMANDA JACOB DR: Lionel Thomas [employer] _ SOURCE: GAS ANTRUM SPDESC: ORDERED: Clotest Procedure Result Reported Site Clotest Final 05/08/17- 720 ML Clotest Negative * ML - Main Lab . END OF REPORT DEPARTMENT OF PATHOLOGY, [address] [place] [address] Simon Garcia M.D. Director [facility] # [id number] 18 SEE RESULT BELOW Name: KEREN THOMAS : [address]: Jimi Graham MD Acct: [id number] Unit: [id number] AGE: 72 Location: ENDO Re05/07/17 SEX: M Status: REG REF SPEC: [id number] VIJAY: 05/07/171247 [facility] DR: Jimi Graham MD REQ: [id number] RECD: 05/07/17 STATUS: SILVER JACOB DR: Lionel Thomas [employer] _ ORDERED: LEVEL 4/3 FINAL DIAGNOSIS 1. Duodenum, biopsy: -- Benign duodenal mucosa with no significant pathologic abnormalities. -- No evidence of villous blunting or increased intraepithelial lymphocytes. 2. Stomach, antrum, biopsy: -- Antral and body-type gastric mucosa with minimal superficial chronic gastritis. -- No evidence of Helicobacter organisms. 3. Colon, at 60 cm, biopsy: -- Tubular adenomas. -- No high grade dysplasia or malignancy. CLINICAL HISTORY Abdominal pain; polyps POST-OPERATIVE DIAGNOSIS Esophagus: normal; hiatal hernia; gastric: gastritis ? biopsy; duodenum: normal ? biopsy; colon to terminal ileum ? cecal polyps (snare); question pneumatosis ? mid- transverse GROSS DESCRIPTION 1. The specimen is received in formalin labeled, Biopsy Duodenum, and consists of a 0.3 x 0.3 x 0.2 cm rawls-pink irregular soft tissue fragment which is submitted entirely in one cassette. 2. The specimen is received in formalin labeled, Biopsy Gastric Antrum, and consists of two rawls-pink irregular soft tissue fragments averaging 0.5 x 0.2 x 0.1 cm which are submitted entirely in one cassette. 3. The specimen is received in formalin labeled, Colon Polyps at 60 cm, and consists of a CONTINUED ON NEXT PAGE DEPARTMENT OF PATHOLOGY, [address] [place] [address] Simon Garcia M.D. Director [facility] # [id number] RUN DATE: 05/08/17 [facility] LAB LIVE PAGE 2 Patient: KEREN THOMAS [id number] (Continued) GROSS DESCRIPTION (Continued) GROSS DESCRIPTION (Continued) 0.7 x 0.5 x 0.3 cm aggregate of rawls-pink irregular to polypoid soft tissue fragments which is submitted entirely in one cassette. Signed (signature on file) Nayely Melendez MD 04/22 1054 END OF REPORT DEPARTMENT OF PATHOLOGY, [address] [place] [address] Simon Garcia M.D. Director [facility] # [id number] 19 Because ethnic data is not always readily available, this report includes an eGFR for both -Americans and non- Americans. The National Kidney Disease Education Program (NKDEP) does not endorse the use of the MDRD equation for patients that are not between the ages of 18 and 70, are , have extremes of body size, muscle mass, or nutritional status, or are non- or non-. According to the National Kidney Foundation, irrespective of diagnosis, the stage of the disease is based on the level of kidney function: Stage Description GFR(mL/min/1.73 m(2)) 1 Kidney damage with normal or decreased GFR 90 2 Kidney damage with mild decrease in GFR 60-89 3 Moderate decrease in GFR 30-59 4 Severe decrease in GFR 15-29 5 Kidney failure <15 (or dialysis) 20 Desirable: <150 Borderline High: 150-199 High: 200-499 Very High: >500 21 Desirable: <200 Borderline High: 200-239 High: >239 22 Low: <40 Desirable: 40-60 High: >60 23 Desirable: <100 Near Optimal: 100-129 Borderline High: 130-159 High: 160-189 Very High: >189 24 Serum levels of PSA measured using the [employer] DXI Hybritech immunoassay should not be interpreted as absolute evidence of the presence or absence of disease. The PSA value should be used in conjunction with other pertinent clinical diagnostic procedures. The values obtained with different assay methods or kits cannot be used interchangeably. 25 SEE RESULT BELOW Name: KEREN THOMAS : [address]: Lilibeth Coker MD Acct: [id number] Unit: [id number] AGE: 72 Location: [facility] Re03/30/17 SEX: M Status: REG REF SPEC: [id number] VIJAY: 03/30/17-0937 GERA SOLOMON: Lilibeth Coker MD REQ: [id number] RECD: 03/30/17 STATUS: SOUT _ ORDERED: LEVEL 3 COMMENTS: [id number] FINAL DIAGNOSIS Skin, left arm, excision: -- Previously ruptured follicular cyst, infundibular type. CLINICAL HISTORY Non-healing lesion of left arm PRE-OPERATIVE DIAGNOSIS L98.9, Suture distal GROSS DESCRIPTION The specimen is received in formalin labeled, Non-healing Lesion Left Arm, Suture Distal, and consists of a 2.4 x 1.3 cm rawls-pink wrinkled hairbearing skin ellipse excised to a maximum depth of 1.0 cm with a central 1.0 x 0.8 x 0.3 cm erythematous nodule. There is a suture attached to one long axis which designates distal. The suture is additionally designated 12:00. The specimen is inked as follows: 9:00 half black, 3:00 half blue and 12:00 tip green, serially sectioned from 12:00 to 6:00 and entirely submitted in cassettes A through D to include ellipse ends in cassette A. Signed (signature on file) Nayely Melendez MD 1054 END OF REPORT * ML=Testing performed at Main Lab DEPARTMENT OF PATHOLOGY, [address] [place] [address] Simon Garcia M.D. Director [facility] # [id number] 26 Desirable <150 Borderline high 150-199 High 200-499 Very High >500 27 Desirable <200 Borderline high 200-239 High >239 28 Low <40 Desirable: 40-60 High: >60 29 Desirable: <100 mg/dL Near Optimal: 100-129 mg/dL Borderline High: 130-159 mg/dL High: 160-189 mg/dL Very High: >189 mg/dL 30 Because ethnic data is not always readily available, this report includes an eGFR for both -Americans and non- Americans. The National Kidney Disease Education Program (NKDEP) does not endorse the use of the MDRD equation for patients that are not between the ages of 18 and 70, are , have extremes of body size, muscle mass, or nutritional status, or are non- or non-. According to the National Kidney Foundation, irrespective of diagnosis, the stage of the disease is based on the level of kidney function: Stage Description GFR(mL/min/1.73 m(2)) 1 Kidney damage with normal or decreased GFR 90 2 Kidney damage with mild decrease in GFR 60-89 3 Moderate decrease in GFR 30-59 4 Severe decrease in GFR 15-29 5 Kidney failure <15 (or dialysis) 31 troponin normal disucssed with patient, will proceed with stress test 32 99th percentile=0.04 ng/mL Troponin results at [facility] and [facility] are not interchangeable. 33 Desirable <150 Borderline high 150-199 High 200-499 Very High >500 34 Desirable <200 Borderline high 200-239 High >239 35 Low <40 Desirable: 40-60 High: >60 36 Desirable: <100 mg/dL Near Optimal: 100-129 mg/dL Borderline High: 130-159 mg/dL High: 160-189 mg/dL Very High: >189 mg/dL 37 Because ethnic data is not always readily available, this report includes an eGFR for both -Americans and non- Americans. The National Kidney Disease Education Program (NKDEP) does not endorse the use of the MDRD equation for patients that are not between the ages of 18 and 70, are , have extremes of body size, muscle mass, or nutritional status, or are non- or non-. According to the National Kidney Foundation, irrespective of diagnosis, the stage of the disease is based on the level of kidney function: Stage Description GFR(mL/min/1.73 m(2)) 1 Kidney damage with normal or decreased GFR 90 2 Kidney damage with mild decrease in GFR 60-89 3 Moderate decrease in GFR 30-59 4 Severe decrease in GFR 15-29 5 Kidney failure <15 (or dialysis) 38 Serum levels of PSA measured using the [employer] DXI Hybritech immunoassay should not be interpreted as absolute evidence of the presence or absence of disease. The PSA value should be used in conjunction with other pertinent clinical diagnostic procedures. The values obtained with different assay methods or kits cannot be used interchangeably. 39 Serum levels of PSA measured using the [employer] DXI Hybritech immunoassay should not be interpreted as absolute evidence of the presence or absence of disease. The PSA value should be used in conjunction with other pertinent clinical diagnostic procedures. The values obtained with different assay methods or kits cannot be used interchangeably. 40 Because ethnic data is not always readily available, this report includes an eGFR for both -Americans and non- Americans. The National Kidney Disease Education Program (NKDEP) does not endorse the use of the MDRD equation for patients that are not between the ages of 18 and 70, are , have extremes of body size, muscle mass, or nutritional status, or are non- or non-. According to the National Kidney Foundation, irrespective of diagnosis, the stage of the disease is based on the level of kidney function: Stage Description GFR(mL/min/1.73 m(2)) 1 Kidney damage with normal or decreased GFR 90 2 Kidney damage with mild decrease in GFR 60-89 3 Moderate decrease in GFR 30-59 4 Severe decrease in GFR 15-29 5 Kidney failure <15 (or dialysis) 41 Desirable <150 Borderline high 150-199 High 200-499 Very High >500 42 Desirable <200 Borderline high 200-239 High >239 43 Low <40 Desirable: 40-60 High: >60 44 Desirable: <100 mg/dL Near Optimal: 100-129 mg/dL Borderline High: 130-159 mg/dL High: 160-189 mg/dL Very High: >189 mg/dL 45 Because ethnic data is not always readily available, this report includes an eGFR for both -Americans and non- Americans. The National Kidney Disease Education Program (NKDEP) does not endorse the use of the MDRD equation for patients that are not between the ages of 18 and 70, are , have extremes of body size, muscle mass, or nutritional status, or are non- or non-. According to the National Kidney Foundation, irrespective of diagnosis, the stage of the disease is based on the level of kidney function: Stage Description GFR(mL/min/1.73 m(2)) 1 Kidney damage with normal or decreased GFR 90 2 Kidney damage with mild decrease in GFR 60-89 3 Moderate decrease in GFR 30-59 4 Severe decrease in GFR 15-29 5 Kidney failure <15 (or dialysis) 46 Because ethnic data is not always readily available, this report includes an eGFR for both -Americans and non- Americans. The National Kidney Disease Education Program (NKDEP) does not endorse the use of the MDRD equation for patients that are not between the ages of 18 and 70, are , have extremes of body size, muscle mass, or nutritional status, or are non- or non-. According to the National Kidney Foundation, irrespective of diagnosis, the stage of the disease is based on the level of kidney function: Stage Description GFR(mL/min/1.73 m(2)) 1 Kidney damage with normal or decreased GFR 90 2 Kidney damage with mild decrease in GFR 60-89 3 Moderate decrease in GFR 30-59 4 Severe decrease in GFR 15-29 5 Kidney failure <15 (or dialysis) 47 Test Performed by: [place] [address] Computer Graphics Illustrator: Keren Cabrera II, M.D., Ph.D. 48 Test Performed by: [place] [address] Computer Graphics Illustrator: Keren Cabrera II, M.D., Ph.D. Procedures Date Code Description Status 07/30/2018 09763 Anoscopy Completed 07/30/2018 38304 Hemorrhoidectomy, Internal, By Rubber Band Ligation(S) Completed 03/13/2018 70851 EKG Tracing & Interpretation Completed 10/09/2017 34928 Holter Monitor Review (24 hr)dr review & interp only Completed 10/03/2017 28217 ECG Monitor/Recording W/Visual Superimposition Completed Scanning 10/03/2017 01687 ECG Monitor/Recording W/Visual Superimposition Completed Scanning 09/28/2017 12953 EKG Tracing & Interpretation Completed 07/30/2017 [id number] Diabetic Retinal Eye Exam Completed 05/07/2017 [id number] Colonoscopy Completed 03/30/2017 62455 Excise Benign Lesion 2.1-3CM Trunk/Arm/Leg Completed 05/17/2016 08498 Stress Test Completed 05/17/2016 20414 Myocardial Perfusion Imaging Tomographic (Spect) Completed Multiple Studies 05/03/2016 05267 EKG Tracing & Interpretation Completed 04/11/2016 66266 Anoscopy Completed 10/17/2015 73003 Cardiac Event Monitor Completed 09/27/2015 94525 ECHO Transthoracic, Real-Time 2D With Doppler And Completed Color Flow 09/23/2015 78014 Event Monitor/Phys Review/Interp. Completed 09/17/2015 42633 EKG Tracing & Interpretation Completed 09/07/2015 05134 EKG Tracing & Interpretation Completed 04/29/2015 59630 Repair Hernia Incisional/Ventral Recurrent, Reducible Completed 01/25/2015 16074 Holter Monitoring 24 HR New Completed 01/06/2015 41970 EKG Tracing & Interpretation Completed 08/06/2014 46485 EKG, Interpretation Only Completed 06/11/2014 77444 Implant For Incisional/Ventral Hernia Repair Completed 06/11/2014 01076 Repair Hernia Incisional/Ventral Initial, Reducible Completed 05/30/2012 [id number] Colonoscopy Completed 12/21/2008 69696 EKG, Interpretation Only Completed 12/10/2007 [id number] Colonoscopy Completed 06/08/2006 45651 Excision,Benign,Face,Ears,Eyelids,Nose,Lips 0.6 To 1.0 Completed CM Encounters Type Date Location Provider Dx Diagnosis Office Visit 08/05/2018 [facility] Lionel Thomas NP J01.90 Acute sinusitis , 2:20p [facility] - [facility] unspecified Office Visit 05/27/2018 [facility] Lionel Thomas NP I10 Essential (primary ) 1:40p [facility] hypertension Office Visit 04/01/2018 [place] Coker, R10.12 Left upper quadrant 10:30a [facility] pain AT [place] R10.30 Lower abdominal pain, unspecified Office Visit 03/22/2018 11:45a [facility] Hector R10.12 Left upper [facility] M.D. quadrant pain Office Visit 03/13/2018 11:40a [facility] Lionel Thomas NP R10.30 Lower abdominal Medicine - [facility] pain, unspecified M54.5 Low back pain M25.559 Pain in unspecified hip R19.7 Diarrhea, unspecified R50.9 Fever, unspecified I49.9 Cardiac arrhythmia, unspecified Office Visit 11/15/2017 2:00p [facility] Brenton Dougalss I10 Essential ( primary) Of [facility] DO John hypertension FACC I65.23 Occlusion and stenosis of bilateral carotid arteries R00.2 Palpitations J43.8 Other emphysema F17.201 Nicotine dependence, unspecified, in remission I49.3 Ventricular premature depolarization I45.10 Unspecified right bundle-branch block Office Visit 10/26/2017 11:15a [facility] Brenton Douglass Lopez, R00.2 Palpitations Of [facility] AT [place] DO FACC I65.29 Occlusion and stenosis of unspecified carotid artery I10 Essential (primary) hypertension F17.201 Nicotine dependence, unspecified, in remission J43.8 Other emphysema I49.3 Ventricular premature depolarization Office Visit 09/17/2017 1:40p [facility] Lionel Martha, R10.9 Unspecified Medicine - [facility] [employer] abdominal pain Office Visit 05/24/2017 1:40p [facility] Lionel Martha, I10 Essential ( primary) Medicine - [facility] [employer] hypertension Office Visit 04/26/2017 11:40a [facility] Lionel Martha, R10.9 Unspecified Medicine - [facility] [employer] abdominal pain Office Visit 02/16/2017 1:40p [facility] Lionel Martha, K57.30 Dvrtclos of lg int Medicine - [facility] [employer] w/o perforation or abscess w/o bleeding Office Visit 02/16/2017 10:30a Surgical Lilibeth Hector K57.30 Dvrtclos of lg int [facility] Won Coker w/o perforation or AT [place] abscess w/o bleeding Office Visit 11/23/2016 1:20p [facility] Lionel Martha, Z23 Encounter for Medicine - [facility] [employer] immunization M54.5 Low back pain I10 Essential (primary) hypertension K12.0 Recurrent oral aphthae Office Visit 11/06/2016 2:00p [facility] Brenton Douglass I10 Essential ( primary) Of [facility] DO John hypertension FACC F17.201 Nicotine dependence, unspecified, in remission I49.3 Ventricular premature depolarization J43.9 Emphysema, unspecified E78.5 Hyperlipidemia, unspecified Office Visit 05/31/2016 1:20p [facility] Brenton S. I10 Essential ( primary) Of [facility] DO hypertension FACC F17.201 Nicotine dependence, unspecified, in remission I49.3 Ventricular premature depolarization J43.9 Emphysema, unspecified E78.5 Hyperlipidemia, unspecified Office Visit 05/24/2016 2:00p [facility] Lionel Martha, E78.5 Hyperlipidemia, Medicine - [employer] unspecified [facility] R73.01 Impaired fasting glucose I10 Essential (primary) hypertension Office Visit 05/04/2016 10:40a [facility] Brenton S. R07.9 Chest pain , Of [facility] DO unspecified [facility] R94.31 Abnormal electrocardiogram [ECG] [EKG] I10 Essential (primary) hypertension F17.201 Nicotine dependence, unspecified, in remission I49.3 Ventricular premature depolarization Office Visit 03/07/2016 1:00p Surgical Lilibeth Dee. R10.10 Upper abdominal [facility] M[facility] pain, unspecified Office Visit 02/29/2016 1:00p Surgical Lilibeth Hector R10.10 [facility] M.[facility] pain, unspecified K43.2 Incisional hernia without obstruction or gangrene Office Visit 01/18/2016 1:45p [facility] Lilibeth Hector R10.10 Upper abdominal [facility] M.[facility] pain, unspecified Office Visit 11/05/2015 10:40a Cardiology Brenton SEfraín I10 Essential Services Of uLke Lopez DO (primary) AT [facility] hypertension F17.211 Nicotine dependence, cigarettes, in remission I49.3 Ventricular premature depolarization Office Visit 10/18/2015 3:40p [facility] Brenton S. R07.9 Chest pain , Of [facility] DO unspecified [facility] I10 Essential (primary) hypertension F17.211 Nicotine dependence, cigarettes, in remission R94.31 Abnormal electrocardiogram [ECG] [EKG] Office Visit 09/29/2015 2:40p [facility] Lionel Martha, I10 Essential ( primary) Medicine - [facility] [employer] hypertension Z23 Encounter for immunization Office Visit 09/17/2015 Cardiology Brenton SEfraín R94.31 Abnormal 2:00p Services Of [facility] DO electrocardiogram AT [facility] [ECG] [EKG] R00.2 Palpitations J44.9 Chronic obstructive pulmonary disease, unspecified I10 Essential (primary) hypertension F17.219 Nicotine dependence, cigarettes, w unsp disorders I45.10 Unspecified right bundle-branch block Office Visit 09/07/2015 10:00a [facility] Lionel Martha, [employer] R00.2 Palpitations [facility] (primary[facility] hypertension Office Visit 09/01/2015 10:40a [facility] Lionel Martha, I10 Essential ( primary) [facility] [employer] hypertension Office Visit 08/30/2015 4:00p [facility] Lionel Martha, I10 Essential ( primary) [facility] [employer] hypertension Office Visit 08/23/2015 4:00p [facility] Melecio Ramon I10 Essential ( primary) Medicine - Aba Pierce M.D. hypertension Office Visit 06/01/2015 1:40p [facility] Melecio Ramon R10.2 Pelvic and perineal Medicine - Aba Pierce M.D. pain J44.9 Chronic obstructive pulmonary disease, unspecified I10 Essential (primary) hypertension Office Visit 03/10/2015 4:00p [facility] Melecio Ramon J44.9 [facility] obstructive pulmonary disease, unspecified R00.2 Palpitations I10 Essential (primary) hypertension Office Visit 01/06/2015 3:00p [facility] Melecio Ramon J44.[place] [facility] obstructive pulmonary disease, unspecified R94.31 Abnormal electrocardiogram [ECG] [EKG] I10 Essential (primary) hypertension K51.90 Ulcerative colitis, unspecified, without complications R10.10 Upper abdominal pain, unspecified Office Visit 08/06/2014 9:32a [facility] Parvin 427.89 Cardiac Assoc,janey Newman D.O. Dysrhythmia Other Hospitalists 496 COPD Airway Obstruction Chronic Not Class Elsewhere 275.2 Metabolic Disorder Magnesium Office Visit 04/16/2014 10:30a [facility] And Alexus 496 COPD Airway Sleep Services Of MD Isael Obstruction [facility] Chronic Not Class Elsewhere 492.8 Emphysema Other 518.89 Lung Disease Other Not Elsewhere Class Office Visit 03/26/2014 2:45p [facility] 496 COPD Airway [facility] Obstruction [facility] Chronic Not Class Elsewhere 786.09 Dyspnea & Respiratory Abnormalities Other Plan of Treatment Future Appointment(s):12/12/2018 11:30 am - Brenton Ramirez MD, FACS at [facility]11/27/2018 1:00 pm - Lionel Thomas NP at [facility] Internal Medicine - [facility]08/12/2018 - Brenton Ramirez MD, FACSK64.2 Third degree hemorrhoidsFollow up:4 mosInstructions:Keep up the good work
--- OUTSIDE RECORDS SUMMARY | 2018-09-07 12:00 | XMS REPORT | Continuity of Care Document ---
:1945 External Reference #:[id number] Author Name Kerry Martínez Care Team Providers Name Role Phone Mary Salinas MD Primary Care Physician Unavailable Payers Date Identification Numbers Payment Provider Subscriber Effective: Policy Number: [id number] Medicare Blue Ppo Keren Thomas 2014 Group Number: [id number] [address] [address] PayID: [id number] RENAY Haile [id number] Effective: 2004 Policy Number: [id number] [facility] T[facility] Expires: 2018 PayID: [id number] [address] [address] RENAY Zarate [id number] Advance Directives Type Date Description Status Comment [...] Unknown Marital Status Lives With Occupation Retired manager facility Tobacco Use Start: Unknown February 22, 2014 ETOH Use Currently consumes alcohol ETOH Use Consumes 4 beers per day Recreational Drug Use Denies Drug Use Tobacco Use Start: Unknown End: Patient is a former Pt quit September 2015 Unknown smoker Smoking Status Reviewed: 09/04/18 Patient is a former Pt quit September [...] Medications SIG Qnty Indications Ordering Date Provider Sucralfate take one tablet 90tabs R10.10 Lionel Thomas 1gm Tablets by mouth four [employer] 9 times a day Oxycodone-Acetaminophen 1 tabs by mouth 12tabs M54.5 Lionel Thomas 5-325mg every 6 hours as [employer] 9 Tablets needed for pain Nystatin 1 teaspoon four t 240units Lionel Thomas, 501873Eepa/ML imes a day for 7 [employer] 7 Suspension days as needed for thrush Mometasone Furoate apply daily as 60ml Lionel Thomas 0.1% needed [employer] 5 Solution Symbicort 2 puff inhaled 2units J44.9 Lionel Thomas, 160-4.5mcg/Act twice a day [employer] 5 Aerosol Omeprazole 1 by mouth twice 180caps Lionel Thomas 20mg Capsules DR a day [employer] 5 Nasacort Aq 2 sprays in each Unknown 55mcg/Act Aerosol nostril every day 5 Acidophilus Lactobacillus Plantarum 299v 1 Unknown by mouth every 0 Capsules day Hydrochlorothiazide 1 by mouth as 90tabs Brenton S. 25mg needed for Lopez, DO 0 Tablets bloating FACC Lisinopril take 1 to 2 120tabs Brenton S. 5mg Tablets tablets by mouth Lopez, DO 0 every day pending FACC bp measurements Hydrocortisone as needed Unknown 1% Lotion 0 Acetaminophen 2 tablets every 6 Unknown 500mg Tablets hours as needed 0 for pain Milk Of Magnesia 30 milliliters Unknown Suspension oral every day as 0 needed for constipation. History Medications Amoxicillin/Clavulanate take one tablet 28tabs J01.90 Lionel Thomas, 2018 - Potassium q12 hours for [employer] Unknown 875-125mg Tablets 14 days Augmentin one twice a day 20tabs Ayden SEfraín 03/27/2018 - 875-125mg Tablets with food Humaira, 05/26/2018 Oxycodone-Acetaminophen 1 tabs by mouth 12tabs M54.5 Lionel Thomas, 2018 - 5-325mg every 6 hours [employer] Unknown Tablets as needed for pain Levofloxacin one by mouth 10tabs Lionel Thomas, 03/13/2018 - 500mg Tablets daily for 10 [employer] 03/23/2018 days Clopidogrel Bisulfate 1 by mouth 30tabs I65.23 Brenton Douglass 11/15/2017 - 75mg Tablets Sunday, DO John Unknown Sunday and FACC Sunday. Methocarbamol take 1 tablet 30tabs R10.9 Anastasia 09/17/2017 - 750mg Tablets every six hours Varn, N.PEfraín 10/25/2017 as needed for pain. Levofloxacin 1 po qd 10tabs K57.30 Lilibeth Hector 02/16/2017 - 500mg Tablets Won Coker 03/29/2017 Delzicol Take 4 6 180caps Lionel Thomas, 11/23/2016 - 400mg Capsules DR Capsules By [employer] 10/25/2017 Mouth Per Day prn Oralone thin layer of 5gm Lionel Thomas 11/23/2016 - 0.1% Paste paste to [employer] 02/05/2017 affected areas 2-4 times daily Pravastatin Sodium 1 tablet daily 90tabs E78.5 Lionel Thomas 11/24/2015 - 40mg Tablets at bedtime [employer] 06/20/2016 Clonidine HCL Take one tablet 30tabs I10 Brenton Douglass 10/18/2015 - 0.1mg Tablets daily-patient DO John 10/13/2015 never started FACC medication Chlorthalidone 1/2 by mouth 30tabs Brenton Douglass 10/06/2015 - 25mg Tablets every day(pt DO John 10/18/2015 not taking) [facility] Amlodipine Besylate 1 1/2 by mouth 30tabs I10 Lionel Thomas, 08/30/2015 - 5mg Tablets every day [employer] 09/07/2015 Valsartan 1 by mouth 90tabs I10 [...] 1 teaspoon four 240units Melecio Ramon - [id number]/ML Suspension t imes a day Won Pierce [...] Code Status Date Vaccine Reaction Lot # [id number] Given 11/19/2017 Fluzone High Dose [id number] 45618 Given 09/04/2017 Zoster (Shingles) Vaccine (HZV), Recombinant, Subunit, Adjuvanted 02464 Given 03/19/2017 Zoster (Shingles) Vaccine (HZV), Recombinant, Subunit, Adjuvanted 62550 Given 11/23/2016 Pneumonia Vaccine No immediate [id number] reaction...jh 42278 Given 11/23/2016 Influenza Virus Vaccine, No immediate [id number] Quadrivalent, Split, reaction.... Preservative Free 77905 Given 11/24/2015 Influ Virus Vaccine, no reaction noted ... [id number] Quadrivalent, Split Virus, [place] [address] Given 09/29/2015 Pneumococcal Conjugate [id number] Vaccine 13 Valent For Intramuscular Use 88304 Given 12/04/2005 Influenza Virus 3Yrs & Over Vital Signs Date Vital Result Comment 09/04/2018 10:46am Height 69 inches 5'9" Weight 174.00 lb Heart Rate 58 /min BP Systolic 140 mmHg BP Diastolic 82 mmHg Body Temperature 97.1 F O2 % BldC Oximetry 97 % BMI (Body Mass Index) 25.7 kg/m2 08/12/2018 11:42am Heart Rate 60 /min BP [...] Test Result H/L Range Note Laboratory test 08/27/2018 [facility] Helico Pylori Negative Negative [address] [place]igen[place] [address] [phone] Laboratory test 05/14/2018 [facility] Rheumatoid 13 IU/mL Normal <15 [address] [place] [address] [phone] PSA Screening 4.726 ng/mL High 0-4.000 3 Connective Tissue 05/14/2018 [facility] Anti-Nuclear Antibody 0.3 U [address] [place] [address] [phone] Cyclic Citrullinated Peptide <15.6 U 5 Interpretation See Comment 6 Laboratory test 05/14/2018 [facility] Erythrocyte Sed 36 mm/Hr High 0-19 [address] [place] [address] [phone] C Reactive Protein 5.08 mg/L Normal <8.01 8 Laboratory test 03/13/2018 [facility] C Difficile SEE RESULT [address] [place] [address] [phone] CBC Auto Diff 03/13/2018 [facility] White Blood 7.8 10^3/uL Normal 3.5-[address] Count 0.8 [place] [address] [phone] Red Blood Count 4.31 10^6/uL Normal 4.00-5.40 Hemoglobin 14.0 g/dL Normal 14.0-18.0 Hematocrit 41 % Low 42-52 Mean Corpuscular Volume 95 fL High 80-94 Mean Corpuscular Hemoglobin 32 pg High 27-31 Mean Corpuscular HGB Conc 34 g/dL Normal 31-36 Red Cell Distribution Width 13 % Normal 10.5-15 Abs Neutrophils 5.5 10^3/uL Normal 1.5-7.7 Abs Lymphocytes 1.2 10^3/uL Normal 1.0-4.8 Abs Monocytes 0.9 10^3/uL High 0-0.8 Abs Eosinophils 0.1 10^3/uL Normal 0-0.6 Abs Basophils 0 10^3/uL Normal 0-0.2 Abs Nucleated RBC 0 10^3/uL Granulocyte % 70.3 % Lymphocyte % 15.6 % Monocyte % 12.2 % Eosinophil % 1.3 % Basophil % 0.6 % Nucleated Red Blood Cells % 0 Platelet Count (SEE NOTE) 10^3/uL 150-450 10 Comp Metabolic 03/13/2018 [facility] Sodium 138 mmol/L Normal 135-[address] [place] [address] [phone] Potassium 4.5 mmol/L Normal 3.5-5.0 Chloride 104 mmol/L Normal 101-111 Co2 Carbon Dioxide 29 mmol/L Normal 22-32 Anion Gap 5 mmol/L Normal 2-11 Glucose 86 mg/dL Normal 70-100 Blood Urea Nitrogen 14 mg/dL Normal 6-24 Creatinine 0.72 mg/dL Normal 0.67-1.17 BUN/Creatinine Ratio 19.4 Normal 8-20 Calcium 9.0 mg/dL Normal 8.6-10.3 Total Protein 6.4 g/dL Normal 6.4-8.9 Albumin 3.9 g/dL Normal 3.2-5.2 Globulin 2.5 g/dL Normal 2-4 Albumin/Globulin Ratio 1.6 Normal 1-3 Total Bilirubin 1.00 mg/dL Normal 0.2-1.0 Alkaline Phosphatase 44 U/L Normal 34-104 Alt 16 U/L Normal 7-52 Ast 19 U/L Normal 13-39 Egfr Non- 107.6 >60 Egfr 130.2 >60 11 Laboratory test 03/13/2018 [facility] Lipase 10 U/L Low 11.0- 82.[address] [place] [address] [phone] Erythrocyte Sed Rate 67 mm/Hr High 0-40 C Reactive Protein 73.10 mg/L High <8.01 Urine Culture And 03/13/2018 [facility] Urine Culture SEE RESULT [address] [place] [address] [phone] Lipid Profile 11/08/2017 [facility] Triglycerides 59 mg/dL 13 (Trig/Chol/HDL) [address] [place] [address] [phone] Cholesterol 173 mg/dL 14 HDL Cholesterol 66.3 mg/dL 15 LDL Cholesterol 95 mg/dL 16 Comp Metabolic 11/08/2017 [facility] Sodium 141 mmol/L Normal 135-[address] [place] [address] [phone] Potassium 4.4 mmol/L Normal 3.5-5.0 Chloride 105 mmol/L Normal 101-111 Co2 Carbon Dioxide 29 mmol/L Normal 22-32 Anion Gap 7 mmol/L Normal 2-11 Glucose 95 mg/dL Normal 70-100 Blood Urea Nitrogen 16 mg/dL Normal 6-24 Creatinine 0.63 mg/dL Low 0.67-1.17 BUN/Creatinine Ratio 25.4 High 8-20 Calcium 9.1 mg/dL Normal 8.6-10.3 Total Protein 6.3 g/dL Low 6.4-8.9 Albumin 4.1 g/dL Normal 3.2-5.2 Globulin 2.2 g/dL Normal 2-4 Albumin/Globulin Ratio 1.9 Normal 1-3 Total Bilirubin 1.00 mg/dL Normal 0.2-1.0 Alkaline Phosphatase 48 U/L Normal 34-104 Alt 22 U/L Normal 7-52 Ast 20 U/L Normal 13-39 Egfr Non- 125.9 >60 Egfr 152.3 >60 17 Laboratory test 05/07/2017 [facility] Clotest SEE RESULT [address] [place] [address] [phone] Laboratory test 05/07/2017 [facility] Surgical SEE RESULT [address] [place] [address] Order [phone] Comp Metabolic 04/27/2017 [facility] Sodium 140 mmol/L Normal 133-[address] [place] [address] [phone] Potassium 4.0 mmol/L Normal 3.5-5.0 Chloride 103 mmol/L Normal 101-111 Co2 Carbon Dioxide 32 mmol/L Normal 22-32 Anion Gap 5 mmol/L Normal 2-11 Glucose 89 mg/dL Normal 70-100 Blood Urea Nitrogen 15 mg/dL Normal 6-24 Creatinine 0.69 mg/dL Normal 0.67-1.17 BUN/Creatinine Ratio 21.7 High 8-20 Calcium 9.2 mg/dL Normal 8.6-10.3 Total Protein 6.3 g/dL Low 6.4-8.9 Albumin 3.8 g/dL Normal 3.2-5.2 Globulin 2.5 g/dL Normal 2-4 Albumin/Globulin Ratio 1.5 Normal 1-3 Total Bilirubin 1.20 mg/dL High 0.2-1.0 Alkaline Phosphatase 40 U/L Normal 34-104 Alt 20 U/L Normal 7-52 Ast 14 U/L Normal 13-39 Egfr Non- 113.4 >60 Egfr 145.8 >60 20 Lipid Profile 04/27/2017 [facility] Triglycerides 78 mg/dL 21 (Trig/Chol/HDL) [address] [place] [address] [phone] Cholesterol 206 mg/dL 22 HDL Cholesterol 75.4 mg/dL 23 LDL Cholesterol 115 mg/dL 24 Laboratory test 04/27/2017 [facility] PSA Screening 4.259 High 0-4.000 [address] ng/[place] [address] [phone] CBC Auto Diff 04/27/2017 [facility] White Blood 7.4 Normal 3.5 -10.[address] Count 10^3/[place] [address] [phone] Red Blood Count 4.43 10^6/uL Normal 4.0-5.4 Hemoglobin 14.3 g/dL Normal 14.0-18.0 Hematocrit 42 % Normal 42-52 Mean Corpuscular Volume 96 fL High 80-94 Mean Corpuscular Hemoglobin 32 pg High 27-31 Mean Corpuscular HGB Conc 34 g/dL Normal 31-36 Red Cell Distribution Width 13 % Normal 10.5-15 Platelet Count 174 10^3/uL Normal 150-450 Mean Platelet Volume 9.0 um3 Normal 7.4-10.4 Abs Neutrophils 4.2 10^3/uL Normal 1.5-7.7 Abs Lymphocytes 2.3 10^3/uL Normal 1.0-4.8 Abs Monocytes 0.7 10^3/uL Normal 0-0.8 Abs Eosinophils 0.2 10^3/uL Normal 0-0.6 Abs Basophils 0 10^3/uL Normal 0-0.2 Abs Nucleated RBC 0 10^3/uL Granulocyte % 57.0 % Normal 38-83 Lymphocyte % 30.6 % Normal 25-47 Monocyte % 10.0 % High 0-7 Eosinophil % 2.1 % Normal 0-6 Basophil % 0.3 % Normal 0-2 Nucleated Red Blood Cells % 0 Laboratory 04/27/2017 [facility] Lipase 12 U/L Normal 11.0- 82.0 test finding [address] [place], [place] [id number] [phone] Laboratory 03/30/2017 [facility] Surgical SEE 26 test finding [address] [place] [address] BELOW [phone] Lipid Profile 10/18/2016 [facility] Triglycerides 68 mg/dL Normal 27 (Trig/Chol/HD DRIVE L) [place], [place] [address] [phone] Cholesterol 194 mg/dL Normal 28 HDL Cholesterol 58.8 mg/dL Normal 29 LDL Cholesterol 122 mg/dL Normal 30 Comp Metabolic 10/18/2016 [facility] Sodium 139 mmol/L Normal 133-145 Panel [address] [place], [place] [address] [phone] Potassium 4.0 mmol/L Normal 3.5-5.0 Chloride 101 mmol/L Normal 101-111 Co2 Carbon Dioxide 32 mmol/L Normal 22-32 Anion Gap 6 mmol/L Normal 2-11 Glucose 103 mg/dL High 70-100 Blood Urea Nitrogen 16 mg/dL Normal 6-24 Creatinine 0.78 mg/dL Normal 0.67-1.17 BUN/Creatinine Ratio 20.5 High 8-20 Calcium 9.7 mg/dL Normal 8.6-10.3 Total Protein 7.0 g/dL Normal 6.4-8.9 Albumin 4.2 g/dL Normal 3.2-5.2 Globulin 2.8 g/dL Normal 2-4 Albumin/Globulin Ratio 1.5 Normal 1-3 Total Bilirubin 1.60 mg/dL High 0.2-1.0 Alkaline Phosphatase 37 U/L Normal 34-104 Alt 16 U/L Normal 7-52 Ast 19 U/L Normal 13-39 Egfr Non- 98.7 Normal >60 Egfr 126.9 Normal >60 31 Laboratory 05/04/2016 [facility] Troponin-I (TnI) 0.01 Normal <0.04 32, 33 test finding [address] ng/[place] [address] [phone] Lipid Profile 05/03/2016 [facility] Triglycerides 61 mg/dL Normal 34 (Trig/Chol/HDL [address] ) [place] [address] [phone] Cholesterol 181 mg/dL Normal 35 HDL Cholesterol 60.7 mg/dL Normal 36 LDL Cholesterol 108 mg/dL Normal 37 Comp Metabolic 05/03/2016 [facility] Sodium 135 mmol/L Normal 133-[address] [place] [address] [phone] Potassium 4.1 mmol/L Normal 3.5-5.0 Chloride 103 mmol/L Normal 101-111 Co2 Carbon Dioxide 29 mmol/L Normal 22-32 Anion Gap 3 mmol/L Normal 2-11 Glucose 107 mg/dL High 70-100 Blood Urea Nitrogen 16 mg/dL Normal 6-24 Creatinine 0.73 mg/dL Normal 0.67-1.17 BUN/Creatinine Ratio 21.9 High 8-20 Calcium 9.4 mg/dL Normal 8.6-10.3 Total Protein 6.9 g/dL Normal 6.4-8.9 Albumin 4.1 g/dL Normal 3.2-5.2 Globulin 2.8 g/dL Normal 2-4 Albumin/Globulin Ratio 1.5 Normal 1-3 Total Bilirubin 1.30 mg/dL High 0.2-1.0 Alkaline Phosphatase 35 U/L Normal 34-104 Alt 16 U/L Normal 7-52 Ast 16 U/L Normal 13-39 Egfr Non- 106.5 Normal >60 Egfr 137.0 Normal >60 38 Laboratory 05/03/2016 [facility] PSA Screening 3.559 Normal 0- 4.000 39 test finding [address] ng/[place] [address] [phone] Laboratory 05/03/2016 [facility] PSA Screening 3.559 Normal 0- 4.000 40 test finding [address] ng/mL [place], [place] [address] [phone] Creatinine 03/01/2016 [facility] Creatinine 0.80 Normal 0.67- 1.[address] mg/dL [place], [place] [address] [phone] Egfr Non- 96.1 Normal >60 Egfr 123.6 Normal >60 41 Laboratory test 03/01/2016 [facility] Blood Urea 13 mg/dL Normal 6-[address] [address] [phone] Lipid Profile 10/29/2015 [facility] Triglycerides 67 mg/dL Normal 42 (Trig/Chol/HDL) [address] [place] [address] [phone] Cholesterol 199 mg/dL Normal 43 HDL Cholesterol 59.7 mg/dL Normal 44 LDL Cholesterol 126 mg/dL Normal 45 Laboratory test 10/29/2015 [facility] Glucose 95 mg/dL Normal 70-100 finding [address] [place] [address] [phone] Hepatitis C Antibody Nonreactive Normal Nonreactive Basic Metabolic 09/23/2015 [facility] Sodium 136 mmol/L Normal 133-145 Panel [address] [place] [address] [phone] Potassium 4.5 mmol/L Normal 3.5-5.0 Chloride 103 mmol/L Normal 101-111 Co2 Carbon Dioxide 29 mmol/L Normal 22-32 Anion Gap 4 mmol/L Normal 2-11 Glucose 99 mg/dL Normal 70-100 Blood Urea Nitrogen 16 mg/dL Normal 6-24 Creatinine 0.72 mg/dL Normal 0.67-1.17 BUN/Creatinine Ratio 22.2 High 8-20 Calcium 9.4 mg/dL Normal 8.6-10.3 Egfr Non- 108.6 Normal >60 Egfr 139.6 Normal >60 46 Laboratory test 09/23/2015 [facility] Magnesium 2.2 mg/dL Normal 1.9-2.[address] [place] [address] [phone] Laboratory test 01/07/2015 [facility] TSH (Thyroid 1.68 Normal 0.34-5.[address] Stim Horm) ?IU/[place] [address] [phone] Basic Metabolic 01/07/2015 [facility] Sodium 136 Normal 133- [address] mmol/[place] [address] [phone] Potassium 4.2 mmol/L Normal 3.5-5.0 Chloride 100 mmol/L Low 101-111 Co2 Carbon Dioxide 30 mmol/L Normal 22-32 Anion Gap 6 mmol/L Normal 2-11 Glucose 96 mg/dL Normal 70-100 Blood Urea Nitrogen 10 mg/dL Normal 6-24 Creatinine 0.79 mg/dL Normal 0.67-1.17 BUN/Creatinine Ratio 12.7 Normal 8-20 Calcium 9.7 mg/dL Normal 8.6-10.3 Egfr Non- 97.8 Normal >60 Egfr 125.8 Normal >60 47 CBC Auto 01/07/2015 [facility] White Blood 6.1 10^3/uL Normal 4.8-10.[address] [place] [address] [phone] Red Blood Count 4.37 10^6/uL Normal 4.0-5.4 Hemoglobin 14.4 g/dL Normal 14.0-18.0 Hematocrit 43 % Normal 42-52 Mean Corpuscular Volume 98 fL High 80-94 Mean Corpuscular Hemoglobin 33 pg High 27-31 Mean Corpuscular HGB Conc 34 g/dL Normal 31-36 Red Cell Distribution Width 12 % Normal 10.5-15 Platelet Count 224 10^3/uL Normal 150-450 Mean Platelet Volume 9 um3 Normal 7.4-10.4 Abs Neutrophils 4.1 10^3/uL Normal 1.5-7.7 Abs Lymphocytes 1.4 10^3/uL Normal 1.0-4.8 Abs Monocytes 0.6 10^3/uL Normal 0-0.8 Abs Eosinophils 0.1 10^3/uL Normal 0-0.6 Abs Basophils 0 10^3/uL Normal 0-0.2 Abs Nucleated RBC 0.01 10^3/uL Normal Granulocyte % 66.3 % Normal 38-83 Lymphocyte % 22.2 % Low 25-47 Monocyte % 9.1 % High 1-9 Eosinophil % 1.9 % Normal 0-6 Basophil % 0.5 % Normal 0-2 Nucleated Red Blood Cells % 0.2 Normal Laboratory 01/07/2015 [facility] Magnesium 2.1 mg/dL Normal 1.9-2.7 test finding [address] [place] [address] [phone] Anti Dnase B 04/07/2014 [facility] Anti 200 IU/mL Normal 0 - [address] Streptol[place] [address] Antibody [phone] Anti-DNase B 90 U/mL Normal 0 - 300 48 Laboratory 04/07/2014 [facility] Vicki Negative Normal Negative test finding [address] ([place] [address] AB) Screen [phone] Rheumatoid Factor <15 IU/mL Normal <15 49 1 Test Performed by: [facility] [place] [address] 2 Copy Result to: LILIBETH TREVIZO ([id number]) 3 Serum levels of PSA measured using the Ajith Jalil DXI Hybritech immunoassay should not be interpreted as absolute evidence of the presence or absence of disease. The PSA value should be used in conjunction with other pertinent clinical diagnostic procedures. The values obtained with different assay methods or kits cannot be used interchangeably. 4 REFERENCE VALUE <=1.0 (Negative) 5 REFERENCE VALUE <20.0 (Negative) 6 Tests for antibodies to dsDNA and PEDRO antigens are not performed automatically unless the VICKI result is > or= 3.0 U. Studies performed at [facility] indicate that positive VICKI results <3.0 U are rarely accompanied by positive second order tests. Test Performed by: [facility] [address] [place] [address] 7 Copy Result to: LILIBETH TREVIZO ([id number]) Verbal to [id number]. [id number] TO CALL PATIENT FOR REDRAW. by [id number] at 1412 on 05/14/18. 8 Copy Result to: LILIBETH TREVIZO ([id number]) 9 SEE RESULT BELOW Name: WILLIAMKEREN Burgos : [address]: Lionel Thomas NP Acct: [id number] Unit: [id number] AGE: 73 Location: [facility] Re03/13/18 SEX: M Status: REG REF SPEC: [id number] VIJAY: 03/13/[address]: Lionel Thomas NP REQ: [id number] RECD: 03/13/18 STATUS: COMP _ SOURCE: STOOL SPDESC: ORDERED: C. diff PCR, Stool Culture, O P: Giar/Crypt Procedure Result Reported Site Stool Culture Final 03/15/18- 0848 ML Result No enteric pathogens isolated Testing [...] ON NEXT PAGE DEPARTMENT OF PATHOLOGY, [address] [place] [address] Simon Garcia M.D. Director [facility] # [id number] Patient: KEREN THOMAS [id number] (Continued) Specimen: [id number] Collected: 03/13/18 Received: 03/13/18 (Continued) Procedure Result Reported Site O P: Giardia/Cryptospor Screen Final (continued) 03/14/181323 Organism 1 Neg Cryptosporidium/Giardia Giardia and cryptosporidium antigen testing performed by enzyme immunoassay. If patient is immunocompromised or has traveled to or is from a developing country, a full ova and parasite exam with microscopic (OPMIC) is recommended. All samples will be held 21 days in case full ova and parasite testing is requested. Contact the Microbiology Department at [phone]. TEST LIMITATIONS: As with all diagnostic procedures, [...] and are not recommended. * ML - [facility] . END OF REPORT DEPARTMENT OF PATHOLOGY, [address] [place] [address] Simon Garcia M.D. Director [facility] # [id number] 10 Platelets clumped. Unable to perform accurate count. 11 Because ethnic data is not always readily [...] 15-29 5 Kidney failure <15 (or dialysis) 12 SEE RESULT BELOW Name: KEREN THOMAS : [address]: Lionel Thomas NP Acct: [id number] Unit: [id number] AGE: 73 Location: [facility] Re03/13/18 SEX: M Status: REG REF SPEC: [id number] VIJAY: 03/13/18-[address]: Lionel Thomas NP REQ: [id number] RECD: 03/13/18 STATUS: COMP _ SOURCE: URINE SPDESC: ORDERED: Urine Culture QUERIES: Urine Source: Clean Catch Procedure Result Reported Site Urine Culture Final 03/14/18- 1610 ML No Growth (<1,000 CFU/mL) * ML - Main Lab . END OF REPORT DEPARTMENT OF PATHOLOGY, [address] [place] [id number] Simon Garcia M.D. Director [facility] # [id number] 13 Desirable: <150 Borderline High: 150-199 High: 200-499 Very High: >500 14 Desirable: <200 Borderline High: 200-239 High: >239 15 Low: <40 Desirable: 40-60 High: >60 16 Desirable: <100 Near Optimal: 100-129 Borderline High: 130-159 High: 160-189 Very High: >189 17 Because ethnic data is not always readily [...] 15-29 5 Kidney failure <15 (or dialysis) 18 SEE RESULT BELOW Name: KEREN THOMAS : [address]: Jimi Graham MD Acct: [id number] Unit: [id number] AGE: 72 Location: ENDO Re05/07/17 SEX: M Status: REG REF SPEC: [id number] VIJAY: 05/07/17-[address] [facility] [address]: Jimi Graham MD REQ: [id number] RECD: 05/07/17 STATUS: AMANDA JACOB DR: Lionel Thomas [employer] _ SOURCE: GAS ANTRUM SPDESC: ORDERED: Clotest Procedure Result Reported Site Clotest Final 05/08/17720 ML Clotest Negative * ML - Main Lab . END OF REPORT DEPARTMENT OF PATHOLOGY, [address] [place] [address] Simon Garcia M.D. Director [facility] # [id number] 19 SEE RESULT BELOW Name: KEREN THOMAS : [address]: Jimi Graham MD Acct: [id number] Unit: [id number] AGE: 72 Location: ENDO Re05/07/17 SEX: M Status: REG REF SPEC: [id number] VIJAY: 05/07/17-[address] [facility] [address]: Jimi Graham MD REQ: [id number] RECD: 05/07/17 STATUS: SILVER JACOB DR: Lionel Thomas [employer] _ ORDERED: LEVEL 4/3 FINAL DIAGNOSIS 1. [...] ON NEXT PAGE DEPARTMENT OF PATHOLOGY, [address] [place] [address] Simon Garcia M.D. Director [facility] # [id number] RUN DATE: 05/08/17 [facility] LAB LIVE PAGE 2 Patient: KEREN THOMAS [id number] (Continued) GROSS DESCRIPTION (Continued) GROSS DESCRIPTION (Continued) 0.7 x 0.5 x 0.3 cm aggregate of rawls-pink irregular to polypoid soft tissue fragments which is submitted entirely in one cassette. Signed (signature on file) Nayely Melendez MD 04/22 1054 END OF REPORT DEPARTMENT OF PATHOLOGY, [address] [place] [address] Simon Garcia M.D. Director [facility] # [id number] 20 Because ethnic data is not always readily [...] 15-29 5 Kidney failure <15 (or dialysis) 21 Desirable: <150 Borderline High: 150-199 High: 200-499 Very High: >500 22 Desirable: <200 Borderline High: 200-239 High: >239 23 Low: <40 Desirable: 40-60 High: >60 24 Desirable: <100 Near Optimal: 100-129 Borderline High: 130-159 High: 160-189 Very High: >189 25 Serum levels of PSA measured using the [employer] DXI Hybritech immunoassay should not be interpreted as absolute evidence of the presence or absence of disease. The PSA value should be used in conjunction with other pertinent clinical diagnostic procedures. The values obtained with different assay methods or kits cannot be used interchangeably. 26 SEE RESULT BELOW Name: KEREN THOMAS : [address]: Lilibeth Coker MD Acct: [id number] Unit: [id number] AGE: 72 Location: [facility] Re03/30/17 SEX: M Status: REG REF SPEC: [id number] VIJAY: 03/30/17-[address]: Lilibeth Coker MD REQ: [id number] RECD: 03/30/17 STATUS: SOUT _ ORDERED: LEVEL 3 COMMENTS: [id number] FINAL DIAGNOSIS Skin, left arm, excision: -- [...] at Main Lab DEPARTMENT OF PATHOLOGY, [address] [place] [address] Simon Garcia M.D. Director [facility] # [id number] 27 Desirable <150 Borderline high 150-199 High 200-499 Very High >500 28 Desirable <200 Borderline high 200-239 High >239 29 Low <40 Desirable: 40-60 High: >60 30 Desirable: <100 mg/dL Near Optimal: 100-129 mg/dL Borderline High: 130-159 mg/dL High: 160-189 mg/dL Very High: >189 mg/dL 31 Because ethnic data is not always readily [...] 15-29 5 Kidney failure <15 (or dialysis) 32 troponin normal disucssed with patient, will proceed with stress test 33 99th percentile=0.04 ng/mL Troponin results at [facility] and [facility] are not interchangeable. 34 Desirable <150 Borderline high 150-199 High 200-499 Very High >500 35 Desirable <200 Borderline high 200-239 High >239 36 Low <40 Desirable: 40-60 High: >60 37 Desirable: <100 mg/dL Near Optimal: 100-129 mg/dL Borderline High: 130-159 mg/dL High: 160-189 mg/dL Very High: >189 mg/dL 38 Because ethnic data is not always readily [...] 15-29 5 Kidney failure <15 (or dialysis) 39 Serum levels of PSA measured using the [employer] DXI Hybritech immunoassay should not be interpreted as absolute evidence of the presence or absence of disease. The PSA value should be used in conjunction with other pertinent clinical diagnostic procedures. The values obtained with different assay methods or kits cannot be used interchangeably. 40 Serum levels of PSA measured using the [employer] DXI Hybritech immunoassay should not be interpreted as absolute evidence of the presence or absence of disease. The PSA value should be used in conjunction with other pertinent clinical diagnostic procedures. The values obtained with different assay methods or kits cannot be used interchangeably. 41 Because ethnic data is not always readily [...] 15-29 5 Kidney failure <15 (or dialysis) 42 Desirable <150 Borderline high 150-199 High 200-499 Very High >500 43 Desirable <200 Borderline high 200-239 High >239 44 Low <40 Desirable: 40-60 High: >60 45 Desirable: <100 mg/dL Near Optimal: 100-129 mg/dL Borderline High: 130-159 mg/dL High: 160-189 mg/dL Very High: >189 mg/dL 46 Because ethnic data is not always [...] 5 Kidney failure <15 (or dialysis) 47 Because ethnic data is not always readily [...] 15-29 5 Kidney failure <15 (or dialysis) 48 Test Performed by: [facility] [address] [place] [address] Balloon Tester: Keren Cabrera II, M.D., Ph.D. 49 Test Performed by: [facility] [address] [place] [address] Balloon Tester: Keren Cabrera II, M.D., Ph.D. Procedures Date Code Description Status 07/30/2018 02713 Hemorrhoidectomy, Internal, By Rubber Band Ligation(S) Completed 03/13/2018 58986 EKG Tracing & Interpretation Completed 10/09/2017 76640 Holter Monitor Review (24 hr)dr review & interp only Completed 10/03/2017 77775 ECG Monitor/Recording W/Visual Superimposition Completed Scanning 10/03/2017 44444 ECG Monitor/Recording W/Visual Superimposition Completed Scanning 09/28/2017 63635 EKG Tracing & Interpretation Completed 07/30/2017 [id number] Diabetic Retinal Eye Exam Completed 05/07/2017 51545612 Colonoscopy Completed 03/30/2017 76615 Excise Benign Lesion 2.1-3CM Trunk/Arm/Leg Completed 05/17/2016 61300 Stress Test Completed 05/17/2016 84038 Myocardial Perfusion Imaging Tomographic (Spect) Completed Multiple Studies 05/03/2016 96469 EKG Tracing & Interpretation Completed 04/11/2016 96097 Anoscopy Completed 10/17/2015 02702 Cardiac Event Monitor Completed 09/27/2015 53412 ECHO Transthoracic, Real-Time 2D With Doppler And Completed Color Flow 09/23/2015 50670 Event Monitor/Phys Review/Interp. Completed 09/17/2015 65764 EKG Tracing & Interpretation Completed 09/07/2015 96810 EKG Tracing & Interpretation Completed 04/29/2015 05792 Repair Hernia Incisional/Ventral Recurrent, Reducible Completed 01/25/2015 86082 Holter Monitoring 24 HR New Completed 01/06/2015 99856 EKG Tracing & Interpretation Completed 08/06/2014 63228 EKG, Interpretation Only Completed 06/11/2014 93369 Implant For Incisional/Ventral Hernia Repair Completed 06/11/2014 88906 Repair Hernia Incisional/Ventral Initial, Reducible Completed 05/30/2012 30280059 Colonoscopy Completed 12/21/2008 41213 EKG, Interpretation Only Completed 12/10/2007 70910152 Colonoscopy Completed 06/08/2006 73200 Excision,Benign,Face,Ears,Eyelids,Nose,Lips 0.6 To 1.0 Completed CM Encounters Type Date Location Provider Dx Diagnosis Office Visit 08/12/2018 Surgical Roland Tidwell.2 Third degree 11:30a [facility] JASSON TITUS hemorrhoids Office Visit 08/05/2018 [facility] Internal Lionel Thomas NP J01.90 Acute sinusitis , 2:20p Medicine - [facility] unspecified Office Visit 05/27/2018 [facility] Internal Lionel Thomas NP I10 Essential (primary ) 1:40p Medicine - [facility] hypertension Office Visit 04/01/2018 Surgical Lilibeth Coker, R10.12 Left upper quadrant 10:30a [facility] Won pain AT [place] R10.30 Lower abdominal pain, unspecified Office Visit 03/22/2018 11:45a Surgical Lilibeth Hector R10.12 Left upper [facility] Won Coker quadrant pain Office Visit 03/13/2018 11:40a [facility] Internal Lionel Thomas NP R10.30 Lower abdominal Medicine - [facility] pain, unspecified M54.5 Low back pain M25.559 Pain in unspecified hip R19.7 Diarrhea, unspecified R50.9 Fever, unspecified I49.9 Cardiac arrhythmia, unspecified Office Visit 11/15/2017 2:00p [facility] Brenton Evonne I10 Essential ( primary) Of [facility], DO hypertension FACC I65.23 Occlusion and stenosis of bilateral carotid arteries R00.2 Palpitations J43.8 Other emphysema F17.201 Nicotine dependence, unspecified, in remission I49.3 Ventricular premature depolarization I45.10 Unspecified right bundle-branch block Office Visit 10/26/2017 11:15a Cardiology Services Brentonjessica Lopez, R00.2 Palpitations [facility] AT [place] DO FACC I65.29 Occlusion and stenosis of unspecified carotid artery I10 Essential (primary) hypertension F17.201 Nicotine dependence, unspecified, in remission J43.8 Other emphysema I49.3 Ventricular premature depolarization Office Visit 09/17/2017 1:40p [facility] Internal Lionelbritton Thomas, R10.9 Unspecified Medicine - [facility] [employer] abdominal pain Office Visit 05/24/2017 1:40p [facility] Internal Lionel Martha, I10 Essential ( primary) Medicine - [facility] [employer] hypertension Office Visit 04/26/2017 11:40a [facility] Internal Lionelbritton Thomas, R10.9 Unspecified Medicine - [facility] [employer] abdominal pain Office Visit 02/16/2017 10:30a Costa Hector K57.30 Dvrtclos of lg int [facility] Coker M.D. w/o perforation or AT Michele abscess w/o bleeding Office Visit 02/16/2017 1:40p [facility] Internal Lionel Thomas K57.30 [facility] [employer] w/o perforation or abscess w/o bleeding Office Visit 11/23/2016 1:20p [facility] Internal Lionel Thomas, Z23 Encounter for Medicine - [facility] [employer] immunization M54.5 Low back pain I10 Essential (primary) hypertension K12.0 Recurrent oral aphthae Office Visit 11/06/2016 2:00p [facility] Brenton SEfraín I10 Essential ( primary) Of Luke Lopez, DO hypertension FACC F17.201 Nicotine dependence, unspecified, in remission I49.3 Ventricular premature depolarization J43.9 Emphysema, unspecified E78.5 Hyperlipidemia, unspecified Office Visit 05/31/2016 1:20p [facility] Brenton SEfraín I10 Essential ( primary) Of Luke Lopez, DO hypertension FACC F17.201 Nicotine dependence, unspecified, in remission I49.3 Ventricular premature depolarization J43.9 Emphysema, unspecified E78.5 Hyperlipidemia, unspecified Office Visit 05/24/2016 2:00p [facility] Internal Lionel Thomas, E78.5 Hyperlipidemia, Medicine - [employer] unspecified [facility] R73.01 Impaired fasting glucose I10 Essential (primary) hypertension Office Visit 05/04/2016 10:40a [facility] Brenton SEfraín R07.9 Chest pain , Of Luke Lopez, DO unspecified FACC R94.31 Abnormal electrocardiogram [ECG] [EKG] I10 Essential (primary) hypertension F17.201 Nicotine dependence, unspecified, in remission I49.3 Ventricular premature depolarization Office Visit 03/07/2016 1:00p Costa Hector R10.10 Upper abdominal [facility] M.D. pain, unspecified Office Visit 02/29/2016 1:00p Costa Hector R10.10 [facility] M.D. pain, unspecified K43.2 Incisional hernia without obstruction or gangrene Office Visit 01/18/2016 1:45p Costa Hector R10.10 Upper abdominal [facility] M.D. pain, unspecified Office Visit 11/05/2015 10:40a Cardiology Brenton Douglass I10 Essential Services Of Luke Lopez DO (primary) AT [facility] hypertension F17.211 Nicotine dependence, cigarettes, in remission I49.3 Ventricular premature depolarization Office Visit 10/18/2015 3:40p [facility] Brenton Douglass R07.9 Chest pain , Of Luke Lopez DO unspecified [facility] I10 Essential (primary) hypertension F17.211 Nicotine dependence, cigarettes, in remission R94.31 Abnormal electrocardiogram [ECG] [EKG] Office Visit 09/29/2015 2:40p [facility] Internal Lionel Martha, I10 Essential ( primary[facility] [employer] hypertension Z23 Encounter for immunization Office Visit 09/17/2015 Cardiology Brenton Douglass R94.31 Abnormal 2:00p Services Of Luke Lopez DO electrocardiogram AT [facility] [ECG] [EKG] R00.2 Palpitations J44.9 Chronic obstructive pulmonary disease, unspecified I10 Essential (primary) hypertension F17.219 Nicotine dependence, cigarettes, w unsp disorders I45.10 Unspecified right bundle-branch block Office Visit 09/07/2015 10:00a [facility] Internal Lionel Martha, [employer] R00.2 Palpitations [facility]primary[facility] hypertension Office Visit 09/01/2015 10:40a [facility] Internal Lionel Martha, I10 Essential ( primary) [facility] [employer] hypertension Office Visit 08/30/2015 4:00p [facility] Internal Lionel Martha, I10 Essential ( primary) [facility] [employer] hypertension Office Visit 08/23/2015 4:00p [facility] Internal Melecio Ramon I10 Essential ( primary) Medicine - Aba Pierce M.D. hypertension Office Visit 06/01/2015 1:40p [facility] Internal Melecio Ramon R10.2 Pelvic and perineal Medicine - Aba Pierce M.D. pain J44.9 Chronic obstructive pulmonary disease, unspecified I10 Essential (primary) hypertension Office Visit 03/10/2015 4:00p [facility] Internal Melecio Bean44.9 Chronic Medicine - Aba Pierce M.D. obstructive pulmonary disease, unspecified R00.2 Palpitations I10 Essential (primary) hypertension Office Visit 01/06/2015 3:00p [facility] Internal Melecio Bean44.9 [facility] obstructive pulmonary disease, unspecified R94.31 Abnormal electrocardiogram [ECG] [EKG] I10 Essential (primary) hypertension K51.90 Ulcerative colitis, unspecified, without complications R10.10 Upper abdominal pain, unspecified Office Visit 08/06/2014 9:32a [facility] Parvin 427.89 Cardiac Assoc,janey Newman D.O. Dysrhythmia Other Hospitalists 496 COPD Airway Obstruction Chronic Not Class Elsewhere 275.2 Metabolic Disorder Magnesium Office Visit 04/16/2014 10:30a Pulmonology And Alexus 496 COPD Airway Sleep Services Of MD Isael Obstruction [employer] Chronic Not Class Elsewhere 492.8 Emphysema Other 518.89 Lung Disease Other Not Elsewhere Class Office Visit 03/26/2014 2:45p [facility] 496 COPD Airway [facility] Obstruction [employer] Chronic Not Class Elsewhere 786.09 Dyspnea & Respiratory Abnormalities Other Plan of Treatment Future Appointment(s):12/12/2018 1:00 pm - Brenton Ramirez MD, FACS at [facility]11/27/2018 1:00 pm - Lionel Thomas NP at [facility] Internal Medicine - [facility]09/04/2018 - Lionel Thomas, NPR10.10 Upper abdominal pain, unspecifiedNew Medication:Sucralfate 1 gm - take one tablet by mouth four times a dayComments:Have the repeat stool testing done on 09/16. Try using the sucralfate 4 times daily which may help.I recommend setting up follow up appointment with the erosion control coordinator.
[2018-09-07 12:16] VITALS: BP 115/48
--- NOTE | 2018-09-07 12:17 | UC ---
Skin Complaint HPI - HPI Summary HPI Summary: 73 yo male presents with rash to right chest wall. He tells me that this morning in the shower he was washing and ran the cloth over his right anterior chest - noticed a painful area. He looked and there was a rash. He came directly to . He is concerned this is shingles. Has not noticed this area before today. Denies fever, chills, known bug bite, hx of shingles. - History of Current Complaint Chief Complaint: UCSkin Time Seen by Provider: 09/07/18 12:16 Stated Complaint: SKIN COMPLAINT Hx Obtained From: Patient Onset/Duration: Sudden Onset Onset Severity: Mild Current Severity: Mild Pain Intensity: 2 Pain Scale Used: 0-10 Numeric - Allergy/Home Medications Allergies/Adverse Reactions: Allergies Allergy/AdvReac Type Severity Reaction Status Date / Time Adhesive Tape Allergy PEELS SKIN Verified 09/07/18 12:21 amlodipine Allergy Unknown Verified 09/07/18 12:21 Reaction Details baclofen Allergy Prostatitis Verified 09/07/18 12:21 chlorthalidone Allergy Unknown Verified 09/07/18 12:21 Reaction Details cyclobenzaprine Allergy Prostatitis Verified 09/07/18 12:21 dicyclomine Allergy Prostatitis Verified 09/07/18 12:21 hydrochlorothiazide Allergy LLQ Verified 09/07/18 12:21 Abdominal/Flank Pain lactose Allergy GI Upset Verified 09/07/18 12:21 methocarbamol Allergy "affected Verified 09/07/18 12:21 my heart", Palpitations metronidazole [From Flagyl] Allergy Prostatitis Verified 09/07/18 12:21 pravastatin Allergy Leg Pain Verified 09/07/18 12:21 and Urinary "Problems" valsartan Allergy Unknown Verified 09/07/18 12:21 Reaction Details Anticholinergic Allergy Prostatitis Uncoded 09/07/18 12:21 antihistamine Allergy Prostatitis Uncoded 09/07/18 12:21 PMH/Surg Hx/FS Hx/Imm Hx Cardiovascular History: Hypertension Respiratory History: COPD GI/ History: Gastroesophageal Reflux - Surgical History Surgical History: Yes Surgery Procedure, Year, and Place: 1999-COLON RESECTION [facility]. 02/2000-SCAR TISSUE REMOVED-OBSTRUCTION [facility]. 2773-2959-3 OPERATIONS EXC 2 EPIDIDYMIDES AND TESTICLE- [facility]. COLON RESECTION & OLD ABD INCISION REPAIR [facility]. 06/2012. epigastric hernia repair X3 06/19 AND 08/1904/29/2015 [facility] - Family History Known Family History: Positive: Non-Contributory - Social History Occupation: Retired Alcohol Use: "a few beers a night" Alcohol Amount: 3-4 beers Substance Use Type: None Smoking Status (MU): Former Smoker Type: Cigarettes Amount Used/How Often: 10-15 CIGS/DAY Length of Time of Smoking/Using Tobacco: ~3/4 PPD x 52 Years Have You Smoked in the Last Year: No When Did the Patient Quit Smoking/Using Tobacco: 02/22/2014 Household Exposure Type: Cigarettes - Immunization History Most Recent Tetanus Shot: 01/2012 Review of Systems All Other Systems Reviewed And Are Negative: Yes Constitutional: Positive: Negative Skin: Positive: Rash Respiratory: Positive: Negative Cardiovascular: Positive: Negative Gastrointestinal: Positive: Negative Neurovascular: Positive: Negative Neurological: Positive: Negative Psychological: Positive: Negative Physical Exam - Summary Physical Exam Summary: GENERAL: NAD. WDWN. No pain distress. SKIN: Right anterior chest well: 1-2mm bug bite with surrounding faint erythema 4.0cm in diameter. Slight TTP. No bleeding, drainage, vesicles, blistering, or ecchymosis. NECK: Supple. Nontender. No lymphadenopathy. CHEST: No accessory muscle use. Breathing comfortably and in no distress. CV: Pulses intact. Cap refill <2seconds NEURO: Alert. PSYCH: Age appropriate behavior. Triage Information Reviewed: Yes Vital Signs: Initial Vital Signs Temp 98.1 F 09/07/18 12:03 Pulse 78 09/07/18 12:03 Resp 18 09/07/18 12:03 BP 115/48 09/07/18 12:03 Pulse Ox 97 09/07/18 12:03 Vital Signs Reviewed: Yes Course/Dx - Course Course Of Treatment: Suspect cellulitis secondary to bug bite right chest well. - Diagnoses Provider Diagnosis: Cellulitis Discharge - Sign-Out/Discharge Documenting (check all that apply): Patient Departure All imaging exams completed and their final reports reviewed: No Studies - Discharge Plan Condition: Stable Disposition: HOME Prescriptions: Amoxicillin PO (*) [Amoxicillin 500 MG CAP*] 500 mg PO Q12H #14 cap Patient Education Materials: Insect Bite or Sting (ED) Referrals: Lionel Thomas ALTERNATIVE MEDICINE PRACTITIONER [Primary Care Provider] - Additional Instructions: If you develop a fever, shortness of breath, chest pain, new or worsening symptoms - please call your PCP or go to the ED immediately. - Billing Disposition and Condition Condition: STABLE Disposition: Home - Attestation Statements Provider Attestation: I was available for consult. This patient was seen by the [facility]. The patient was not presented to , seen by or examined by wa -Christina Hanley MD
== END 2018-09-07 12:35 | disposition home or self-care (01) ==
LOC: UCCORT 11:51
DX: L03.313 Cellulitis of chest wall (principal); I10 Essential (primary) hypertension; Z87.891 Personal history of nicotine dependence
CPT/HCPCS: 99212; G0463